=== PATIENT | male | born 1955 | race Caucasian/White ===

== ENCOUNTER → 2016-03-09 | Outpatient (CLI) | payer BC ==
[~2016-03-09] MED LIST: ASPI81TA3 PO; ATOR80TA75 PO; CLOP75TA27 PO; DIAZ10TA4 PO; ESCI10TA PO; GLIM2TAB PO; HYDR4TAB18 PO; LISI-523 PO; METF500T4 PO; OXYC30TA PO; ZOLP10TA PO
== END | disposition home or self-care (01) ==
LOC: CRE 14:53
PROVIDERS: ATTEND Nurse Practitioner Acute Care
DX: I25.10 Atherosclerotic heart disease of native coronary artery without angina pectoris (principal); I25.5 Ischemic cardiomyopathy; I25.2 Old myocardial infarction
CPT/HCPCS: 93797

== ENCOUNTER 2016-04-18 17:57 | Inpatient (IN) | payer BC ==
[~2016-04-18] VITALS: Ht 182.9 cm; Wt 90.6 kg
--- NOTE | 2016-04-18 19:39 | HP ---
DATE OF ADMISSION: 04/18/2016 REASON FOR ADMISSION: Chest pain and fever. HISTORY OF PRESENT ILLNESS: This 61-year-old man was seen by me today because of "not feeling well." The patient says that he has been feeling fatigued over the past week. Yesterday, while trying to fix the light switch, he had some chest heaviness with diaphoresis. The patient got into to bed and felt better. The patient then went for his cardiac rehabilitation today. He came to see me after the rehab and was feeling sweaty. He denied any chest pain today. The patient says that he had a fever to 103 about 8 days ago. He also had vomiting and diarrhea. He said he was confused. The patient said that he felt better after the fever subsided. He has had no further fevers since then. The patient says that about a month ago, he had some dental work done on the left upper premolar. He said that he was having some pain and mentioned this to his oncologist and was given a week of amoxicillin. He said that he felt better after taking the amoxicillin. The patient has not had any recent diarrhea, cough, headache, dysuria. PAST MEDICAL HISTORY: Remarkable for the followin. Coronary artery disease status post 3 coronary artery stents placed during the last 2 years. 2. Multiple myeloma in remission. He is currently taking Decadron once a week. 3. Type 2 diabetes mellitus. 4. Chronic back pain, on narcotic medications chronically. 5. Hyperlipidemia. 6. Rosacea. 7. Depression. 8. Hypertension. 9. Migraine headaches. CURRENT MEDICATIONS: Include the followin. OxyContin 20 mg twice a day. 2. Atorvastatin 80 mg a day. 3. Aspirin 81 mg a day. 4. Ambien 10 mg at bedtime for sleep. 5. Dilaudid 4 mg every 4 hours for back pain. 6. Metformin 500 mg twice a day. 7. Plavix 75 mg a day. 8. Glimepiride 2 mg once a day. 9. Lisinopril 2.5 mg once a day. 10. Lexapro 20 mg once a day. 11. Decadron he takes once a week. ALLERGIES: NO KNOWN DRUG ALLERGIES. SURGICAL HISTORY: Lumbar spine surgery x3, tonsillectomy, cervical spine surgery, colonoscopy 12/2012, coronary artery stents x3. FAMILY HISTORY: Both parents are . Father of unknown causes. Mother had diabetes. SOCIAL HISTORY: The patient does not smoke, does not drink alcohol. 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 REVIEW OF SYSTEMS: CONSTITUTIONAL: He has had some sweats, no weight loss. He has had fatigue. OPHTHALMOLOGIC: Unremarkable. EARS, NOSE, AND THROAT: Negative. CARDIORESPIRATORY: He has had some chest heaviness yesterday associated with diaphoresis. GASTROINTESTINAL: Episode of nausea, vomiting, diarrhea approximately 1 week ago with fever. UROLOGIC: Negative. PHYSICAL EXAMINATION: GENERAL: At this time, reveals well-developed man in no apparent distress. VITAL SIGNS: Temperature 98.1, blood pressure 104/80, heart rate 76. HEENT: Head normocephalic. EYES: Extraocular muscles intact. NOSE AND MOUTH: Normal. NECK: Supple. No neck vein distention. LUNGS: Clear to auscultation. HEART: Regular rhythm. No murmurs, gallops, or rubs. ABDOMEN: Soft, nontender. No masses or megaly. EXTREMITIES: 2+ pedal pulses. No clubbing, cyanosis, or edema. IMPRESSION: 1. The most immediate concern is to rule out acute coronary syndrome. The patient had an episode of chest pressure yesterday with associated diaphoresis. The patient has also been having a fever recently. 2. Type 2 diabetes mellitus. 3. Hypertension. 4. Multiple myeloma, in remission. 5. Headaches. 6. Hyperlipidemia. PLAN 1. The patient is being sent to the emergency room for further evaluation and treatment. 2. Rule out acute coronary syndrome. 3. Cardiology consult with Dr Keyona jiménez . 4. He did have a fever and therefore will need a fever workup including a chest x-ray, urinalysis, blood cultures x2, etc. 5. I will follow the patient medically. Dictated By: LINDSAY YI MD, ND/NATACHA Conf#: [id number] DID#: [id number] MTDD
[2016-04-18] MEDS ORDERED: OXYC20TA41 PO (19:52)
[2016-04-18] MEDS ORDERED: ESCI20TA38 PO (19:53)
[2016-04-18] MEDS ORDERED: DEXA4TAB PO (19:54)
[2016-04-18] MEDS ORDERED: LISI2.5T59 PO (19:55)
[2016-04-18] MEDS ORDERED: ACETAMINOPHEN 325 MG TAB PO PRN (20:00)
[2016-04-18] MEDS ORDERED: NACL 0.9% 3 ML SYG IV SCH (20:00)
[2016-04-18] MEDS ORDERED: NITROGLYCERIN (SL) 0.4 MG TAB SL PRN (20:00)
[2016-04-18] MEDS ORDERED: ONDANSETRON 4 MG INJ IV PRN (20:00)
[2016-04-18 20:04] LABS: ADD SCAN DIFF NO
[2016-04-18 20:08] LABS: BASOPHILS % 0.5 % (0.0-2.0); EOSINOPHILS # 0.1 10^3/ul (0.0-0.5); EOSINOPHILS % 0.7 % (0.0-7.0); HEMATOCRIT 42.3 % (42.0-52.0); LYMPHOCYTES # 1.7 10^3/ul (0.8-2.9); LYMPHOCYTES % 19.2 % (15.0-51.0); MEAN CORPUSCULAR HEMOGLOBIN 31.4 pg (29.0-33.0); MEAN CORPUSCULAR HGB CONC 33.1 g/dl (32.0-37.0); MEAN CORPUSCULAR VOLUME 94.8 fl (82.0-101.0); MEAN PLATELET VOLUME 10.5 fl (7.4-10.4); MONOCYTES % 11.2 % (0.0-11.0); NEUTROPHIL # 5.5 10^3/ul (1.6-7.5); NEUTROPHILS % 63.9 % (39.0-77.0); PLATELET COUNT 231 10^3/UL (140-415); RED BLOOD COUNT 4.46 10^6/ul (4.70-6.10); RED CELL DISTRIBUTION WIDTH 12.8 % (11.5-14.5); WHITE BLOOD COUNT 8.6 10^3/ul (4.8-10.8)
[2016-04-18 20:19] LABS: INR 0.91; PROTIME 12.3 Sec (12.2-14.2)
[2016-04-18 20:20] LABS: PARTIAL THROMBOPLASTIN TIME 24.3 Sec (25.0-35.0)
[2016-04-18 20:25] LABS: CHLORIDE 105 mmol/L (97-110); SODIUM 140 mmol/L (135-144)
[2016-04-18 20:28] LABS: ANION GAP 13 (8-16); BLOOD UREA NITROGEN 15 mg/dl (7-20); CALCIUM 8.5 mg/dl (8.4-10.2); CARBON DIOXIDE 26 mmol/L (21-31); CREATININE 0.77 mg/dl (0.61-1.24); GLUCOSE 111 mg/dl (70-220)
[2016-04-18 20:37] LABS: B-TYPE NATRIURETIC PEPTIDE 48 PG/ML (0-125)
[2016-04-18 20:41] LABS: TROPONIN-I < 0.012 ng/ml (0.00-0.12)
--- NOTE | 2016-04-18 20:44 | ERA ---
ER Documentation Chief Complaint Date/Time DATE: 04/18/16 TIME: 20:42 Chief Complaint CHEST PAIN FOR [address] JOHN FOR ADMIT. NO RECENT URI HPI This is a 61-year-old male presents to the emergency room for evaluation of chest pain that he has had for 1 weeks duration. This patient was sent in by his primary care physician Dr. john for admission. This patient did state that he had a fever 3 days ago. The patient denies any cough associated with this and came to the emergency room for evaluation and admission. Patient states his chest pain is an achy pain in the center of his chest with no radiation. Patient denies any aggravating or relieving factors for his pain. ROS All systems reviewed and are negative except as per history of present illness. Medications Home Meds Active Scripts Lisinopril* (Zestril*) 5 Mg Tab, 2.5 MG PO DAILY, #30 Prov:YURIY HERRING MD 10/25/14 Clopidogrel Bisulfate (Clopidogrel) 75 Mg Tab, 75 MG PO DAILY, #90 4 Refills Prov:YURIY HERRING MD 10/25/14 Aspirin (Aspirin) 81 Mg Chew, 81 MG PO DAILY, #30 12 Refills Prov:YURIY HERRING MD 10/25/14 Reported Medications Lisinopril* (Lisinopril*) 2.5 Mg Tablet, 2.5 MG PO DAILY, #30 TAB 04/18/16 Dexamethasone* (Dexamethasone*) 4 Mg Tablet, 6 MG PO DAILY, TAB 04/18/16 Escitalopram Oxalate* (Escitalopram Oxalate*) 20 Mg Tablet, 20 MG PO DAILY, #30 TAB 04/18/16 Oxycodone Hcl* (Oxycontin*) 20 Mg Tab.er.12h, 20 MG PO Q4H, TAB 04/18/16 Hydromorphone Hcl* (Dilaudid*) 4 Mg Tablet, 5 MG PO Q6H Y for PAIN, TAB 11/26/15 Zolpidem Tartrate* (Ambien*) 10 Mg Tablet, 10 MG PO QHS Y for INSOMNIA, TAB 11/26/15 Diazepam* (Diazepam*) 10 Mg Tablet, 10 MG PO, TAB 11/26/15 Glimepiride* (Glimepiride*) 2 Mg Tablet, 2 MG PO WITH BREAKFAST, TAB 11/26/15 Metformin* (Glucophage*) 500 Mg Tab, 500 MG PO BID, #30 TAB 07/01/15 Atorvastatin* (Atorvastatin*) 80 Mg Tablet, 80 MG PO HS, TAB 10/21/14 Discontinued Reported Medications Oxycodone Hcl* (IR) (Oxycodone Hcl*) 30 Mg Tablet, 20 MG PO Q4H Y for PAIN, TAB 11/26/15 Escitalopram Oxalate* (Lexapro*) 10 Mg Tablet, 10 MG PO DAILY, #30 TAB 07/01/15 Allergies Allergies: Coded Allergies: No Known Allergies (Verified Allergy, Unknown, 04/18/16) PMhx/Soc History of Surgery: Yes (SPINAL ARTHRODESIS) Anesthesia Reaction: No Hx Neurological Disorder: No Hx Respiratory Disorders: No Hx Cardiac Disorders: Yes (CORONARY ARTERY STENOSIS, HTN, HLP,CARDIOMYOPATHY) Hx Psychiatric Problems: No Hx Miscellaneous Medical Probl: Yes (MULTIPLE MYELOMA) Hx Alcohol Use: No Hx Substance Use: Yes (occassional THC in edible) Hx Tobacco Use: No Smoking Status: Never smoker Physical Exam Vitals Vital Signs Date Time Temp Pulse Resp B/P Pulse Ox O2 Delivery O2 Flow Rate FiO2 04/18/16 19:48 80 11 105/75 98 04/18/16 17:59 97.8 107 20 112/71 94 Physical Exam INITIAL VITAL SIGNS: Reviewed by me GENERAL: The patient is well developed and appropriate for usual state of health in no apparent distress HEENT: Pupils equal, round, and reactive to light. EOMI. There is no scleral icterus. NECK: C-spine is soft and supple, there is no meningismus. There is no cervical lymphadenopathy. LUNGS: Clear to auscultation bilaterally. There are no rales, wheezes or rhonchi. HEART: Regular rate and rhythm, no murmurs, clicks, rubs or gallops. ABDOMEN: Soft, non-tender, non-distended. There are bowel sounds in all four quadrants. No rebound or guarding. EXTREMITIES: There is no peripheral cyanosis or edema. No focal swelling or erythema. NEUROLOGICAL: The patient moves all four extremities with 5/5 strength. Cranial nerves II - XII are intact. Normal gait. Alert and oriented SKIN: There is no apparent rash or petechiae. HEME/LYMPHATIC: There is no evidence of excessive bruising or lymphedema. PSYCHIATRIC: The patient does not appear anxious or depressed. Result Diagram: 04/18/16194404/18/161944 Results 24 hrs Laboratory Tests Test 04/18/16 19:45 04/18/16 20:20 Activated Partial Thromboplast Time 24.3Sec Anion Gap 13 B-Type Natriuretic Peptide 48PG/ML Basophils # 0.010^3/ul Basophils % 0.5% Blood Urea Nitrogen 15mg/dl Calcium Level 8.5mg/dl Carbon Dioxide Level 26mmol/L Chloride Level 105mmol/L Creatinine 0.77mg/dl Eosinophils # 0.110^3/ul Eosinophils % 0.7% Glucose Level 111mg/dl Hematocrit 42.3% Hemoglobin 14.0g/dl INR International Normalized Ratio 0.91 Lymphocytes # 1.710^3/ul Lymphocytes % 19.2% Mean Corpuscular Hemoglobin 31.4pg Mean Corpuscular Hemoglobin Concent 33.1g/dl Mean Corpuscular Volume 94.8fl Mean Platelet Volume 10.5fl Monocytes # 1.010^3/ul Monocytes % 11.2% Neutrophils # 5.510^3/ul Neutrophils % 63.9% Nucleated Red Blood Cells # 0.010^3/ul Nucleated Red Blood Cells % 0.0/100WBC Platelet Count 05334^3/UL Potassium Level 4.0mmol/L Prothrombin Time 12.3Sec Prothrombin Time Ratio 1.0 Red Blood Count 4.4610^6/ul Red Cell Distribution Width 12.8% Sodium Level 140mmol/L Troponin I < 0.012ng/ml White Blood Count 8.610^3/ul Bedside Glucose 110mg/dL Current Medications Medications (Trade) Dose Ordered Sig/[place] Route PRN Reason Start Time Stop Time Status Last Admin Dose Admin IV Flush (NS 3 ml) 3 ml PER PROTOCOL IV 04/18/16 20:00 Ondansetron HCl (Zofran Inj) 4 mg Q6H PRN IV NAUSEA AND/OR VOMITING 04/18/16 20:00 Nitroglycerin (Nitroglycerin (Sl Tab) 0.4 Mg) 1 tab Q5M PRN SL CHEST PAIN 04/18/16 20:00 Acetaminophen (Tylenol Tab) 650 mg Q6H PRN PO PAIN LEVEL 1-3 OR FEVER 04/18/16 20:00 Procedures/MDM EKG: Rate/Rhythm: [Normal Sinus Rhythm] QRS, ST, T-waves: [No changes consistent w/ acute ischemia] Impression: [No evidence of ischemia or arrhythmia] Chest X-ray 1V Interpreted by me: Soft Tissue: No acute abnormalities Bones: No acute abnormalities Mediastinum/Cardiac Silhouette/Lungs: [No acute abnormalities] This 61-year-old male presents to the emergency room for evaluation of chest pain. The patient was sent in by his primary care physician for evaluation and admission. And when I evaluated this patient he was hemodynamically stable, not hypoxic. The patient had lab work drawn and an EKG was obtained which is nonischemic. First troponin is normal. Chest x-ray does not show any acute infiltrates or pneumothorax. This patient will be placed in for admission at this time under the care of Dr. Newton for chest pain. [facility] Departure Diagnosis: Primary Impression: Chest pain Condition: Stable YANNI GOODSON DO Apr 18, 2016 20:44
--- NOTE | 2016-04-18 20:46 | RADRPT ---
PROCEDURE: XR Chest AP portable CLINICAL INDICATION: Chest pain TECHNIQUE: An AP portable radiograph of the chest was submitted. COMPARISON: 07/01/2015 FINDINGS: Support Hardware: None Cardiovascular: The cardiovascular silhouette appears unremarkable. Lung Styles: Slight discoid atelectasis is again seen at the lung bases. Pleural Spaces: No pneumothorax or pleural effusion is identified. Osseous Structures: Mild degenerative endplate changes are seen through the thoracic spine. Soft Tissues: The soft tissues appear unremarkable. IMPRESSION: 1. Persistent mild discoid atelectasis seen at the lung bases. 2. Mild degenerative spine changes. Physician Avani Date Time Electronically viewed and signed by Kirk Connelly Physician on 04/18/2016 20:46 RH/
[2016-04-18] MEDS ORDERED: morphine 4 MG/ML VIAL IV STA (20:47)
[2016-04-18] MEDS ORDERED: GLUCOSE GEL 15 GRAM TUBE PO PRN ×2 (22:00)
[2016-04-18] MEDS ORDERED: GLUCAGON 1 MG INJ IM PRN (22:00)
[2016-04-18] MEDS ORDERED: DEXTROSE 50% 50 ML SYRINGE IV PRN ×2 (22:00)
[2016-04-18] MEDS ORDERED: ZOLPIDEM 5 MG TAB PO PRN (22:00)
[2016-04-18] MEDS ORDERED: GLUCOSE GEL 15 GRAM TUBE BUCCAL PRN (22:00)
[2016-04-18] MEDS ORDERED: oxyCODONE (CR) 20 MG TAB [oxyCONTIN] PO SCH (22:00)
[2016-04-18] MEDS ORDERED: HYDROmorphONE 4 MG TAB PO PRN (22:00)
[2016-04-18] MEDS ORDERED: DIAZEPAM 5 MG TAB PO PRN (22:00)
[2016-04-18 22:15] VITALS: Ht 182.9 cm; Wt 90.6 kg
[2016-04-18 22:17] VITALS: PULSE 72
[2016-04-18 22:46] VITALS: BP 125/73; RESP 18
[2016-04-18] MEDS: ATORVASTATIN 80 MG TAB PO SCH (23:43)
[2016-04-18] MEDS: metFORMIN 500 MG TAB PO SCH (23:43)
[2016-04-19] VITALS (12 sets, daily range): BP systolic 113–141; BP diastolic 69–89; PULSE 60–79; RESP 16–20
[2016-04-19 01:55] LABS: TROPONIN-I 0.023 ng/ml (0.00-0.12)
[2016-04-19] MEDS: ACCUCHECK AT 2AM (Patients on SS coverage) XX SCH (02:00)
[2016-04-19 02:38] LABS: CK-MB 0.35 ng/ml (0.0-2.4)
[2016-04-19] MEDS: HYDROmorphONE 2 MG TAB PO PRN ×2 (02:47→14:46)
[2016-04-19] MEDS: INSULIN ASPART [NOVOLOG] 3 ML PEN SC SCH ×4 (08:00→21:00)
--- NOTE | 2016-04-19 08:05 | PN ---
Date/Time of Note Date/Time of Note DATE: 04/19/16 TIME: 07:57 Assessment/Plan VTE Prophylaxis VTE Prophylaxis Intervention: ambulation, SCD's Lines/Catheters IV Catheter Type (from Nrs): [place] [employer] Central line still needed: No Urinary Cath still in place: No Assessment/Plan Chief Complaint/Hosp Course 1. chest pressure , r/o acute coronary syndrome .Troponins are negative and EKG last night normal . Cardiology consult called . will order EKG and echocardiogram . 2. fever , no obvious source of infection , afebrile . 3. DM 4. migraine headache . 5. multiple myeloma ,in remission Problems: Subjective 24 Hr Interval Summary Free Text/Dictation He is awake and alert . He has a headache . He had some chest pressure last night . Respiratory: no complaints Cardiovascular: chest pain Gastrointestinal: no complaints Genitourinary: no complaints Neurologic: headache Exam/Review of Systems Vital Signs Vitals Vital Signs Date Time Temp Pulse Resp B/P Pulse Ox O2 Delivery O2 Flow Rate FiO2 04/19/16 04:10 97.9 76 20 120/69 98 04/18/16 22:30 Nasal Cannula 2.0 Intake and Output 04/18/16 04/18/16 04/19/16 15:00 23:00 07:00 Intake Total 650 ml Balance 650 ml Exam Constitutional: alert, oriented, well developed Psych: nl mood/affect, no complaints Respiratory: clear to auscultation, normal air movement Cardiovascular: nl pulses, regular rate and rhythm Gastrointestinal: nl liver, spleen, non-tender, soft Musculoskeletal: nl extremities to inspection Results Result Diagram: 04/18/16194404/18/161944 Results 24 hrs Laboratory Tests Test 04/18/16 19:45 04/18/16 20:20 04/19/16 01:20 04/19/16 02:22 Activated Partial Thromboplast Time 24.3 L Anion Gap 13 B-Type Natriuretic Peptide 48 Basophils # 0.0 Basophils % 0.5 Blood Urea Nitrogen 15 Calcium Level 8.5 Carbon Dioxide Level 26 Chloride Level 105 Creatinine 0.77 Eosinophils # 0.1 Eosinophils % 0.7 Glucose Level 111 Hematocrit 42.3 Hemoglobin 14.0 INR International Normalized Ratio 0.91 Lymphocytes # 1.7 Lymphocytes % 19.2 Mean Corpuscular Hemoglobin 31.4 Mean Corpuscular Hemoglobin Concent 33.1 Mean Corpuscular Volume 94.8 Mean Platelet Volume 10.5 H Monocytes # 1.0 H Monocytes % 11.2 H Neutrophils # 5.5 Neutrophils % 63.9 Nucleated Red Blood Cells # 0.0 Nucleated Red Blood Cells % 0.0 Platelet Count 231 Potassium Level 4.0 Prothrombin Time 12.3 Prothrombin Time Ratio 1.0 Red Blood Count 4.46 L Red Cell Distribution Width 12.8 Sodium Level 140 Troponin I < 0.012 0.023 White Blood Count 8.6 # Bedside Glucose 110 147 Creatine Kinase 24 Creatine Kinase Index 1.5 Creatinine Kinase MB (Mass) 0.35 Test 04/19/16 07:49 Bedside Glucose 136 Medications Medications Current Medications Ondansetron HCl (Zofran Inj) 4 mg Q6H PRN IV NAUSEA AND/OR VOMITING; Start at 20:00 Nitroglycerin (Nitroglycerin (Sl Tab) 0.4 Mg) 1 tab Q5M PRN SL CHEST PAIN; Start 04/18/16 at 20:00 Acetaminophen (Tylenol Tab) 650 mg Q6H PRN PO PAIN LEVEL 1-3 OR FEVER; Start at 20:00 Aspirin (Aspirin) 81 mg DAILY PO ; Start 04/19/16 at 09:00 Atorvastatin Calcium (Lipitor) 80 mg HS PO Last administered on 04/18/16 23:43 ; Admin Dose 80 MG; Start 04/18/16 at 23:30 Clopidogrel Bisulfate (plaVIX) 75 mg DAILY PO ; Start 04/19/16 at 09:00 Diazepam (Valium) 10 mg HS PRN PO sleep Last administered on 04/18/16 23:45; Admin Dose 10 MG; Start 04/18/16 at 22:00 Escitalopram Oxalate (Lexapro) 20 mg DAILY PO ; Start 04/19/16 at 09:00 Lisinopril (Zestril) 2.5 mg DAILY PO ; Start 04/19/16 at 09:00 Zolpidem Tartrate (Ambien) 10 mg QHS PRN PO INSOMNIA; Start 04/18/16 at 22:00 Oxycodone HCl (Oxycontin) 20 mg BID PO ; Start 04/19/16 at 09:00 Miscellaneous Information 1 ea NOTE XX ; Start 04/18/16 at 22:00 Glucose (Glutose) 15 gm Q15M PRN PO DECREASED GLUCOSE; Start 04/18/16 at 22:00 Glucose (Glutose) 22.5 gm Q15M PRN PO DECREASED GLUCOSE; Start 04/18/16 at 22: 00 Dextrose (D50w Syringe) 25 ml Q15M PRN IV DECREASED GLUCOSE; Start 04/18/16 at 22:00 Dextrose (D50w Syringe) 50 ml Q15M PRN IV DECREASED GLUCOSE; Start 04/18/16 at 22:00 Glucagon (Glucagen) 1 mg Q15M PRN IM DECREASED GLUCOSE; Start 04/18/16 at 22:00 Glucose (Glutose) 15 gm Q15M PRN BUCCAL DECREASED GLUCOSE; Start 04/18/16 at 22 :00 Diagnostic Test (Pha) (Accucheck) 1 ea 02 XX ; Start 04/19/16 at 02:00 Hydromorphone HCl (Dilaudid) 5 mg Q6H PRN PO PAIN Last administered on t 02:47; Admin Dose 5 MG; Start 04/19/16 at 03:00 LINDSAY YI MD Apr 19, 2016 08:05
[2016-04-19 08:30] LABS: CK-MB 0.32 ng/ml (0.0-2.4); TROPONIN-I 0.021 ng/ml (0.00-0.12)
[2016-04-19] MEDS ORDERED: LISINOPRIL 5 MG TAB PO SCH ×2 (09:00)
[2016-04-19] MEDS: ASPIRIN 81 MG TAB PO SCH (09:16)
[2016-04-19] MEDS: metFORMIN 500 MG TAB PO SCH ×2 (09:17→18:44)
[2016-04-19] MEDS: ESCITALOPRAM 10 MG TAB PO SCH (09:17)
[2016-04-19] MEDS: CLOPIDOGREL 75 MG TAB PO SCH (09:17)
[2016-04-19] MEDS: GLIMEPIRIDE 2 MG TAB PO SCH (09:17)
[2016-04-19] MEDS: oxyCODONE (CR) 20 MG TAB [oxyCONTIN] PO SCH ×2 (09:18→21:06)
--- NOTE | 2016-04-19 10:50 | CONS ---
Date/Time of Note Date/Time of Note DATE: 04/19/16 TIME: 10:41 Assessment/Plan Assessment/Plan Chief Complaint/Hosp Course Impression: Chest pressure- symptoms are different than previous anginal L shoulder pain, but are concerning for unstable angina given associated chest pressure/sob/ fatigue/diaphoresis. pt r/o for acs and echo negative for wma. will need to further evaluate with stress echo vs. LHC. d/w pt/family, prefer stress echo prior to invasive evaluation. - cont asa/plavix/statin - pt unable to tolerate imdur/bb - treadmill stress echo when possible - DM2- per primary team HTN - controlled - cont lisinopril - low salt diet HLD- on statin ICM- low ef on 2014 echo, resolved now normal lv systolic fxn Problems: Consultation Date/Type/Reason Admit Date/Time Apr 18, 2016 at 19:49 Date of Consultation: Apr 19, 2016 Type of Consultation: Cardiology Reason for Consultation Chest pressure, fatigue Referring Provider: LINDSAY YI MD Hx of Present Illness Mr. Arrieta is a 61 y.o. man with h/o of CAD s/p PCI to LAD, rPDA, rPL branches, ICM with normalization of lvef, myeloma, htn, hld and diabetes 2/2 steroid therapy. Patient admitted to [facility] by PCP Dr. Yi for one week of progressive fatigue, chest heaviness and diaphoresis. Pt apparently had fevers with n/v 8 days ago on the weekend as well. Pt states walking shor distances have cause him heaviness in mid chest and diaphoresis. However, this is not with all activities as he has been to rehab without chest pressure. has been compliant with medications, no bleeding. no pnd, orthopnea, edema. no palp, dizziness, fainting. EKG on admission reviewed, nsr, no ischemic changes. pt with serial neg trop x 3. Constitutional: febrile Eyes: no complaints ENT: no complaints Respiratory: shortness of breath Cardiovascular: chest pain Gastrointestinal: nausea, vomiting Genitourinary: no complaints Musculoskeletal: no complaints Skin: no complaints Neurologic: headache Psychological: nl mood/affect, no complaints Past Medical History 1. Coronary artery disease status post 3 coronary artery stents placed during the last 2 years. 2. Multiple myeloma with h/o of lytic lesions, in remission. He is currently taking Decadron once a week. 3. Type 2 diabetes mellitus. 4. Chronic back pain, on narcotic medications chronically. 5. Hyperlipidemia. 6. Rosacea. 7. Depression. 8. Hypertension. 9. Migraine headaches. Past Surgical History Lumbar spine surgery x3, tonsillectomy, cervical spine surgery, colonoscopy 2012, coronary artery stents x3. Past Surgical Hx: no surgical history Family History Significant Family History: heart disease (no heart disease) Social History Alcohol Use: none Smoking Status: Never smoker Drug Use: none Exam/Review of Systems Vital Signs Vitals Vital Signs Date Time Temp Pulse Resp B/P Pulse Ox O2 Delivery O2 Flow Rate FiO2 04/19/16 09:32 60 04/19/16 08:21 97.9 18 119/79 99 04/18/16 22:30 Nasal Cannula 2.0 Intake and Output 04/18/16 04/18/16 04/19/16 15:00 23:00 07:00 Intake Total 650 ml Balance 650 ml Exam Constitutional: alert, oriented, well developed Psych: nl mood/affect, no complaints Head: atraumatic, normocephalic Eyes: EOMI, nl conjunctiva, nl lids ENMT: nl external ears & nose Neck: non-tender, supple, No jvd Respiratory: clear to auscultation, normal air movement, No crackles/rales Cardiovascular: bruits, nl pulses, regular rate and rhythm, No S3, No S4, No systolic murmur Gastrointestinal: non-tender, soft Musculoskeletal: nl extremities to inspection Extremities: normal pulses 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, nl mental status, nl speech, nl strength Skin: nl turgor Results Result Diagram: 04/18/16194404/18/161944 Results 24 hrs Laboratory Tests Test 04/18/16 19:45 04/18/16 20:20 04/19/16 01:20 04/19/16 02:22 Activated Partial Thromboplast Time 24.3 L Anion Gap 13 B-Type Natriuretic Peptide 48 Basophils # 0.0 Basophils % 0.5 Blood Urea Nitrogen 15 Calcium Level 8.5 Carbon Dioxide Level 26 Chloride Level 105 Creatinine 0.77 Eosinophils # 0.1 Eosinophils % 0.7 Glucose Level 111 Hematocrit 42.3 Hemoglobin 14.0 INR International Normalized Ratio 0.91 Lymphocytes # 1.7 Lymphocytes % 19.2 Mean Corpuscular Hemoglobin 31.4 Mean Corpuscular Hemoglobin Concent 33.1 Mean Corpuscular Volume 94.8 Mean Platelet Volume 10.5 H Monocytes # 1.0 H Monocytes % 11.2 H Neutrophils # 5.5 Neutrophils % 63.9 Nucleated Red Blood Cells # 0.0 Nucleated Red Blood Cells % 0.0 Platelet Count 231 Potassium Level 4.0 Prothrombin Time 12.3 Prothrombin Time Ratio 1.0 Red Blood Count 4.46 L Red Cell Distribution Width 12.8 Sodium Level 140 Troponin I < 0.012 0.023 White Blood Count 8.6 # Bedside Glucose 110 147 Creatine Kinase 24 Creatine Kinase Index 1.5 Creatinine Kinase MB (Mass) 0.35 Test 04/19/16 07:20 04/19/16 07:49 Creatine Kinase 22 L Creatine Kinase Index 1.5 Creatinine Kinase MB (Mass) 0.32 Troponin I 0.021 Bedside Glucose 136 Medications Medications Current Medications Ondansetron HCl (Zofran Inj) 4 mg Q6H PRN IV NAUSEA AND/OR VOMITING; Start at 20:00 Nitroglycerin (Nitroglycerin (Sl Tab) 0.4 Mg) 1 tab Q5M PRN SL CHEST PAIN; Start 04/18/16 at 20:00 Acetaminophen (Tylenol Tab) 650 mg Q6H PRN PO PAIN LEVEL 1-3 OR FEVER; Start at 20:00 Aspirin (Aspirin) 81 mg DAILY PO Last administered on 04/19/16 09:16; Admin Dose 81 MG; Start 04/19/16 at 09:00 Atorvastatin Calcium (Lipitor) 80 mg HS PO Last administered on 04/18/16 23:43 ; Admin Dose 80 MG; Start 04/18/16 at 23:30 Clopidogrel Bisulfate (plaVIX) 75 mg DAILY PO Last administered on 04/19/16 09 :17; Admin Dose 75 MG; Start 04/19/16 at 09:00 Diazepam (Valium) 10 mg HS PRN PO sleep Last administered on 04/18/16 23:45; Admin Dose 10 MG; Start 04/18/16 at 22:00 Escitalopram Oxalate (Lexapro) 20 mg DAILY PO Last administered on 04/19/16 09 :17; Admin Dose 20 MG; Start 04/19/16 at 09:00 Lisinopril (Zestril) 2.5 mg DAILY PO Last administered on 04/19/16 09:20; Admin Dose 2.5 MG; Start 04/19/16 at 09:00 Zolpidem Tartrate (Ambien) 10 mg QHS PRN PO INSOMNIA; Start 04/18/16 at 22:00 Oxycodone HCl (Oxycontin) 20 mg BID PO Last administered on 04/19/16 09:18; Admin Dose 20 MG; Start 04/19/16 at 09:00 Miscellaneous Information 1 ea NOTE XX ; Start 04/18/16 at 22:00 Glucose (Glutose) 15 gm Q15M PRN PO DECREASED GLUCOSE; Start 04/18/16 at 22:00 Glucose (Glutose) 22.5 gm Q15M PRN PO DECREASED GLUCOSE; Start 04/18/16 at 22: 00 Dextrose (D50w Syringe) 25 ml Q15M PRN IV DECREASED GLUCOSE; Start 04/18/16 at 22:00 Dextrose (D50w Syringe) 50 ml Q15M PRN IV DECREASED GLUCOSE; Start 04/18/16 at 22:00 Glucagon (Glucagen) 1 mg Q15M PRN IM DECREASED GLUCOSE; Start 04/18/16 at 22:00 Glucose (Glutose) 15 gm Q15M PRN BUCCAL DECREASED GLUCOSE; Start 04/18/16 at 22 :00 Diagnostic Test (Pha) (Accucheck) 1 ea 02 XX ; Start 04/19/16 at 02:00 Hydromorphone HCl (Dilaudid) 5 mg Q6H PRN PO PAIN Last administered on 02:47; Admin Dose 5 MG; Start 04/19/16 at 03:00 Procedures Procedures cxr images reviewed atelectasis. no edema NAYELI CURIEL Apr 19, 2016 10:50
--- NOTE | 2016-04-19 15:34 | RADRPT ---
Echocardiogram Report Patient Name: FELICITY DE OLIVEIRA Gender: Male Date: 1955 Study Date: 19-Apr-2016 Medical Administrative Specialist: DOT [facility] Location: 5552 Ref. Physician: LINDSAY YI Quality: Good Procedures: Transthoracic echocardiogram with complete 2D, M-Mode, and doppler examination. Indications: Chest Pain. 2D/M Mode Doppler Measurement Value Normal Ranges Measurement Value Normal Ranges LVIDd 2D 5.1 3.5 - 5.6 cm AV Peak Corona 1.3 m/sec LVIDs 2D 3.6 2.1 - 4.1 cm AV Peak PG 7.3 mmHg LVPWd 2D 1.1 0.6 - 1.1 cm LVOT Peak [place] 1.0 m/sec IVSd 2D 1.2 0.6 - 1.1 cm LVOT Peak PG 3.7 mmHg EDV 2D 123.9 cm3 MV E Peak [place] 0.8 m/sec ESV 2D 47.7 cm3 MV A Peak [place] 0.9 m/sec MV E/A 0.9 MV Decel Time 204 msec MV Decel Simpson 4 MV E/A 0.9 Findings Left Ventricle: Normal left ventricular systolic function. Normal left ventricular cavity size. Normal left ventricular wall thickness. Ejection fraction is visually estimated at 65 %. Tissue Doppler/Mitral Doppler indices are consistent with impaired relaxation (Stage I diastolic dysfunction). Right Ventricle: Normal right ventricular size. Normal right ventricular systolic function. Left Atrium: There is mild enlargement of left atrium. LA Dimension4.20 cm. Right Atrium: The right atrium is normal in size. Mitral Valve: Mild mitral leaflet calcification. Trace mitral regurgitation. Aortic Valve: No hemodynamically significant aortic stenosis by doppler. Trileaflet aortic valve. Trace aortic valve regurgitation. Tricuspid Valve: Tricuspid valve not well visualized. Unable to obtain RVSP due to minimal presence of tricuspid regurgitation. There is trace tricuspid regurgitation. Pulmonic Valve: There is trace pulmonic regurgitation. Pericardium: Normal pericardium with no significant pericardial effusion. Aorta: Normal aortic root. IVC: Normal size and normal respiratory collapse consistent with normal right atrial pressure. Conclusions Normal left ventricular systolic function. Normal left ventricular cavity size. Normal left ventricular wall thickness. Ejection fraction is visually estimated at 65 %. Tissue Doppler/Mitral Doppler indices are consistent with impaired relaxation (Stage I diastolic dysfunction). Normal right ventricular size. Normal right ventricular systolic function. There is mild enlargement of left atrium. LA Dimension4.20 cm. Tricuspid valve not well visualized. Unable to obtain RVSP due to minimal presence of tricuspid regurgitation. There is trace tricuspid regurgitation. Normal size and normal respiratory collapse consistent with normal right atrial pressure. No Vegetation, masses, or thrombi seen. Electronically Signed By: Enrique Dennis 19-Apr-2016 15:33:38 -0700 Patient Name: FELICITY DE OLIVEIRA Study Date: 19-Apr-2016 [id number]
[2016-04-19 16:37] LABS: ADD UMIC NO; URINE BILIRUBIN (Dip) NEGATIVE (NEGATIVE); URINE BLOOD (Dip) NEGATIVE (NEGATIVE); URINE COLOR LT. YELLOW (YELLOW); URINE GLUCOSE (Dip) NEGATIVE (NEGATIVE); URINE KETONES (Dip) NEGATIVE (NEGATIVE); URINE LEUKOCYTE ESTERASE (Dip) NEGATIVE (NEGATIVE); URINE NITRITE (Dip) NEGATIVE (NEGATIVE); URINE TOTAL PROTEIN (Dip) NEGATIVE (NEGATIVE); URINE UROBILINOGEN (Dip) 0.2 E.U./dL (0.1-1.0)
[2016-04-19] MEDS: ATORVASTATIN 80 MG TAB PO SCH (21:06)
[2016-04-20] VITALS (10 sets, daily range): BP systolic 120–144; BP diastolic 67–94; PULSE 55–83; RESP 18–20
[2016-04-20] MEDS: ACCUCHECK AT 2AM (Patients on SS coverage) XX SCH (02:00)
[2016-04-20 06:46] LABS: ADD SCAN DIFF NO
[2016-04-20 06:48] LABS: BASOPHILS % 0.4 % (0.0-2.0); EOSINOPHILS # 0.1 10^3/ul (0.0-0.5); EOSINOPHILS % 1.2 % (0.0-7.0); HEMATOCRIT 40.6 % (42.0-52.0); HEMOGLOBIN 12.9 g/dl (14.0-18.0); LYMPHOCYTES # 1.4 10^3/ul (0.8-2.9); LYMPHOCYTES % 19.6 % (15.0-51.0); MEAN CORPUSCULAR HEMOGLOBIN 30.7 pg (29.0-33.0); MEAN CORPUSCULAR HGB CONC 31.8 g/dl (32.0-37.0); MEAN CORPUSCULAR VOLUME 96.7 fl (82.0-101.0); MEAN PLATELET VOLUME 10.8 fl (7.4-10.4); MONOCYTE # 1.2 10^3/ul (0.3-0.9); MONOCYTES % 16.3 % (0.0-11.0); NEUTROPHIL # 4.4 10^3/ul (1.6-7.5); NEUTROPHILS % 60.6 % (39.0-77.0); PLATELET COUNT 193 10^3/UL (140-415); RED CELL DISTRIBUTION WIDTH 12.9 % (11.5-14.5); WHITE BLOOD COUNT 7.3 10^3/ul (4.8-10.8)
[2016-04-20 07:29] LABS: ALBUMIN 3.2 g/dl (3.3-4.9); POTASSIUM 5.2 mmol/L (3.5-5.1)
[2016-04-20 07:31] LABS: CREATININE 0.75 mg/dl (0.61-1.24)
[2016-04-20 07:32] LABS: ALBUMIN/GLOBULIN RATIO 1.45; BILIRUBIN,INDIRECT 0.3 mg/dl (0-1.1); BILIRUBIN,TOTAL 0.3 mg/dl (0.2-1.3); TOTAL PROTEIN 5.4 g/dl (6.1-8.1)
[2016-04-20 07:33] LABS: CALCIUM 8.4 mg/dl (8.4-10.2)
--- NOTE | 2016-04-20 07:54 | CONS ---
Date/Time of Note Date/Time of Note DATE: 04/20/16 TIME: 07:48 Assessment/Plan Assessment/Plan Chief Complaint/Hosp Course 1. chest pressure , r/o acute coronary syndrome .Troponins are negative and EKG last night normal . Cardiology is seen patient . He is in the process of having a cardiac stress test done this morning. 2. fever , no obvious source of infection , afebrile . 3. DM 4. migraine headache . 5. multiple myeloma ,in remission Problems: Consultation Date/Type/Reason Admit Date/Time Apr 18, 2016 at 19:49 Initial Consult Date 04/19/16 Type of Consultation: Cardiology Referring Provider: LINDSAY YI MD 24 HR Interval Summary Free Text/Dictation He is going for a cardiac stress test now. He denies any chest pain. He continues to have a headache. Exam/Review of Systems Vital Signs Vitals Vital Signs Date Time Temp Pulse Resp B/P Pulse Ox O2 Delivery O2 Flow Rate FiO2 04/20/16 04:53 98.0 64 20 140/94 98 04/19/16 20:00 Room Air 04/19/16 20:00 2.0 Intake and Output 04/19/16 04/19/16 04/20/16 15:00 23:00 07:00 Intake Total 1100 ml 400 ml Balance 1100 ml 400 ml Exam Constitutional: alert, oriented, well developed Psych: nl mood/affect, no complaints Respiratory: clear to auscultation, normal air movement Cardiovascular: regular rate and rhythm Musculoskeletal: nl extremities to inspection Results Result Diagram: 04/20/16 0605 04/20/16 0605 Results 24 hrs Laboratory Tests Test 04/19/16 07:49 04/19/16 11:00 04/19/16 12:09 04/19/16 17:20 Bedside Glucose 136 133 106 Urine Bilirubin NEGATIVE Urine Clarity CLEAR Urine Color LT. YELLOW Urine Glucose NEGATIVE Urine Hemoglobin NEGATIVE Urine Ketones NEGATIVE Urine Leukocyte Esterase NEGATIVE Urine Nitrite NEGATIVE Urine Specific [place] 1.015 Urine Total Protein NEGATIVE Urine Urobilinogen 0.2 E.U./dL Urine pH 6.0 Test 04/19/16 21:05 04/20/16 06:05 Bedside Glucose 104 Alanine Aminotransferase (ALT/SGPT) 39 Albumin 3.2 L Albumin/Globulin Ratio 1.45 Alkaline Phosphatase 46 Anion Gap 10 Aspartate Amino Transf (AST/SGOT) 23 Basophils # 0.0 Basophils % 0.4 Blood Urea Nitrogen 10 Calcium Level 8.4 Carbon Dioxide Level 32 H Chloride Level 105 Creatinine 0.75 Direct Bilirubin 0.00 Eosinophils # 0.1 Eosinophils % 1.2 Globulin 2.20 Glucose Level 100 Hematocrit 40.6 L Hemoglobin 12.9 L Hemoglobin A1c 7.6 H Indirect Bilirubin 0.3 Lymphocytes # 1.4 Lymphocytes % 19.6 Mean Corpuscular Hemoglobin 30.7 Mean Corpuscular Hemoglobin Concent 31.8 L Mean Corpuscular Volume 96.7 Mean Platelet Volume 10.8 H Monocytes # 1.2 H Monocytes % 16.3 H Neutrophils # 4.4 Neutrophils % 60.6 Nucleated Red Blood Cells # 0.0 Nucleated Red Blood Cells % 0.0 Platelet Count 193 Potassium Level 5.2 H Red Blood Count 4.20 L Red Cell Distribution Width 12.9 Sodium Level 142 Total Bilirubin 0.3 Total Protein 5.4 L White Blood Count 7.3 Medications Medications Current Medications Ondansetron HCl (Zofran Inj) 4 mg Q6H PRN IV NAUSEA AND/OR VOMITING; Start at 20:00 Nitroglycerin (Nitroglycerin (Sl Tab) 0.4 Mg) 1 tab Q5M PRN SL CHEST PAIN; Start 04/18/16 at 20:00 Acetaminophen (Tylenol Tab) 650 mg Q6H PRN PO PAIN LEVEL 1-3 OR FEVER; Start at 20:00 Aspirin (Aspirin) 81 mg DAILY PO Last administered on 04/19/16 09:16; Admin Dose 81 MG; Start 04/19/16 at 09:00 Atorvastatin Calcium (Lipitor) 80 mg HS PO Last administered on 04/19/16 21:06 ; Admin Dose 80 MG; Start 04/18/16 at 23:30 Clopidogrel Bisulfate (plaVIX) 75 mg DAILY PO Last administered on 04/19/16 09 :17; Admin Dose 75 MG; Start 04/19/16 at 09:00 Diazepam (Valium) 10 mg HS PRN PO sleep Last administered on 04/18/16 23:45; Admin Dose 10 MG; Start 04/18/16 at 22:00 Escitalopram Oxalate (Lexapro) 20 mg DAILY PO Last administered on 04/19/16 09 :17; Admin Dose 20 MG; Start 04/19/16 at 09:00 Lisinopril (Zestril) 2.5 mg DAILY PO Last administered on 04/19/16 09:20; Admin Dose 2.5 MG; Start 04/19/16 at 09:00 Zolpidem Tartrate (Ambien) 10 mg QHS PRN PO INSOMNIA; Start 04/18/16 at 22:00 Oxycodone HCl (Oxycontin) 20 mg BID PO Last administered on 04/19/16 21:06; Admin Dose 20 MG; Start 04/19/16 at 09:00 Miscellaneous Information 1 ea NOTE XX ; Start 04/18/16 at 22:00 Glucose (Glutose) 15 gm Q15M PRN PO DECREASED GLUCOSE; Start 04/18/16 at 22:00 Glucose (Glutose) 22.5 gm Q15M PRN PO DECREASED GLUCOSE; Start 04/18/16 at 22: 00 Dextrose (D50w Syringe) 25 ml Q15M PRN IV DECREASED GLUCOSE; Start 04/18/16 at 22:00 Dextrose (D50w Syringe) 50 ml Q15M PRN IV DECREASED GLUCOSE; Start 04/18/16 at 22:00 Glucagon (Glucagen) 1 mg Q15M PRN IM DECREASED GLUCOSE; Start 04/18/16 at 22:00 Glucose (Glutose) 15 gm Q15M PRN BUCCAL DECREASED GLUCOSE; Start 04/18/16 at 22 :00 Diagnostic Test (Pha) (Accucheck) 1 ea 02 XX ; Start 04/19/16 at 02:00 Hydromorphone HCl (Dilaudid) 5 mg Q6H PRN PO PAIN Last administered on 14:46; Admin Dose 5 MG; Start 04/19/16 at 03:00 LINDSAY YI MD Apr 20, 2016 07:54
[2016-04-20] MEDS: INSULIN ASPART [NOVOLOG] 3 ML PEN SC SCH ×2 (08:00→12:00)
[2016-04-20] MEDS: metFORMIN 500 MG TAB PO SCH (08:00)
[2016-04-20] MEDS: HYDROmorphONE 2 MG TAB PO PRN ×2 (08:13→18:09)
--- NOTE | 2016-04-20 08:51 | CONS ---
Date/Time of Note Date/Time of Note DATE: 04/20/16 TIME: 08:49 Assessment/Plan Assessment/Plan Chief Complaint/Hosp Course Impression: Chest pressure- different than previous anginal symptoms. pt has r/o for ACS. has normal lv fxn on echo without ischemia or cp after 6 mins of stress. does have htn response to stress. - cont asa/plavix/statin - pt unable to tolerate imdur/bb previously due to headache/dizziness - add ranexa 500mg po bid - ok to defer on invasive evaluation at this time, re-evaluate as outpt. DM2- per primary team HTN - htn during stress test - controlled - cont lisinopril, increase to 5mg daily and cont to titrate as outpt - low salt diet HLD- on statin ICM- low ef on 2014 echo, resolved now normal lv systolic fxn Problems: Consultation Date/Type/Reason Admit Date/Time Apr 18, 2016 at 19:49 Initial Consult Date 04/19/16 Type of Consultation: Cardiology Referring Provider: LINDSAY YI MD 24 HR Interval Summary Free Text/Dictation no acute events. pt states has headache this am, waiting for pain medication. denies any cp/sob/sweats. pt with stress echo this am which showed no ischemia , pt able to exercise for 6 mins. no chest pain, did have sob. also with hypertensive response to stress. Detailed Summary ENT: no complaints Respiratory: no complaints Cardiovascular: no complaints Gastrointestinal: no complaints Exam/Review of Systems Vital Signs Vitals Vital Signs Date Time Temp Pulse Resp B/P Pulse Ox O2 Delivery O2 Flow Rate FiO2 04/20/16 08:20 64 04/20/16 04:53 98.0 20 140/94 98 04/19/16 20:00 Room Air 04/19/16 20:00 2.0 Intake and Output 04/19/16 04/19/16 04/20/16 15:00 23:00 07:00 Intake Total 1100 ml 400 ml Balance 1100 ml 400 ml Exam Constitutional: alert, oriented, well developed Psych: nl mood/affect, no complaints Head: atraumatic, normocephalic Eyes: EOMI, nl conjunctiva, nl lids ENMT: nl external ears & nose Neck: non-tender, supple, No jvd Respiratory: clear to auscultation, normal air movement, No crackles/rales Cardiovascular: bruits, nl pulses, regular rate and rhythm, No S3, No S4, No systolic murmur Gastrointestinal: non-tender, soft Musculoskeletal: nl extremities to inspection Extremities: normal pulses Neurological: RELATIONSHIP EXECUTIVE II-XII intact, nl mental status, nl speech, nl strength Skin: nl turgor Results Result Diagram: 04/20/16 0605 04/20/16 0605 Results 24 hrs Laboratory Tests Test 04/19/16 11:00 04/19/16 12:09 04/19/16 17:20 04/19/16 21:05 Urine Bilirubin NEGATIVE Urine Clarity CLEAR Urine Color LT. YELLOW Urine Glucose NEGATIVE Urine Hemoglobin NEGATIVE Urine Ketones NEGATIVE Urine Leukocyte Esterase NEGATIVE Urine Nitrite NEGATIVE Urine Specific [place] 1.015 Urine Total Protein NEGATIVE Urine Urobilinogen 0.2 E.U./dL Urine pH 6.0 Bedside Glucose 133 106 104 Test 04/20/16 06:05 Alanine Aminotransferase (ALT/SGPT) 39 Albumin 3.2 L Albumin/Globulin Ratio 1.45 Alkaline Phosphatase 46 Anion Gap 10 Aspartate Amino Transf (AST/SGOT) 23 Basophils # 0.0 Basophils % 0.4 Blood Urea Nitrogen 10 Calcium Level 8.4 Carbon Dioxide Level 32 H Chloride Level 105 Creatinine 0.75 Direct Bilirubin 0.00 Eosinophils # 0.1 Eosinophils % 1.2 Globulin 2.20 Glucose Level 100 Hematocrit 40.6 L Hemoglobin 12.9 L Hemoglobin A1c 7.6 H Indirect Bilirubin 0.3 Lymphocytes # 1.4 Lymphocytes % 19.6 Mean Corpuscular Hemoglobin 30.7 Mean Corpuscular Hemoglobin Concent 31.8 L Mean Corpuscular Volume 96.7 Mean Platelet Volume 10.8 H Monocytes # 1.2 H Monocytes % 16.3 H Neutrophils # 4.4 Neutrophils % 60.6 Nucleated Red Blood Cells # 0.0 Nucleated Red Blood Cells % 0.0 Platelet Count 193 Potassium Level 5.2 H Red Blood Count 4.20 L Red Cell Distribution Width 12.9 Sodium Level 142 Total Bilirubin 0.3 Total Protein 5.4 L White Blood Count 7.3 Medications Medications Current Medications Ondansetron HCl (Zofran Inj) 4 mg Q6H PRN IV NAUSEA AND/OR VOMITING; Start at 20:00 Nitroglycerin (Nitroglycerin (Sl Tab) 0.4 Mg) 1 tab Q5M PRN SL CHEST PAIN; Start 04/18/16 at 20:00 Acetaminophen (Tylenol Tab) 650 mg Q6H PRN PO PAIN LEVEL 1-3 OR FEVER; Start at 20:00 Aspirin (Aspirin) 81 mg DAILY PO Last administered on 04/19/16 09:16; Admin Dose 81 MG; Start 04/19/16 at 09:00 Atorvastatin Calcium (Lipitor) 80 mg HS PO Last administered on 04/19/16 21:06 ; Admin Dose 80 MG; Start 04/18/16 at 23:30 Clopidogrel Bisulfate (plaVIX) 75 mg DAILY PO Last administered on 04/19/16 09 :17; Admin Dose 75 MG; Start 04/19/16 at 09:00 Diazepam (Valium) 10 mg HS PRN PO sleep Last administered on 04/18/16 23:45; Admin Dose 10 MG; Start 04/18/16 at 22:00 Escitalopram Oxalate (Lexapro) 20 mg DAILY PO Last administered on 04/19/16 09 :17; Admin Dose 20 MG; Start 04/19/16 at 09:00 Lisinopril (Zestril) 2.5 mg DAILY PO Last administered on 04/19/16 09:20; Admin Dose 2.5 MG; Start 04/19/16 at 09:00 Zolpidem Tartrate (Ambien) 10 mg QHS PRN PO INSOMNIA; Start 04/18/16 at 22:00 Oxycodone HCl (Oxycontin) 20 mg BID PO Last administered on 04/19/16 21:06; Admin Dose 20 MG; Start 04/19/16 at 09:00 Miscellaneous Information 1 ea NOTE XX ; Start 04/18/16 at 22:00 Glucose (Glutose) 15 gm Q15M PRN PO DECREASED GLUCOSE; Start 04/18/16 at 22:00 Glucose (Glutose) 22.5 gm Q15M PRN PO DECREASED GLUCOSE; Start 04/18/16 at 22: 00 Dextrose (D50w Syringe) 25 ml Q15M PRN IV DECREASED GLUCOSE; Start 04/18/16 at 22:00 Dextrose (D50w Syringe) 50 ml Q15M PRN IV DECREASED GLUCOSE; Start 04/18/16 at 22:00 Glucagon (Glucagen) 1 mg Q15M PRN IM DECREASED GLUCOSE; Start 04/18/16 at 22:00 Glucose (Glutose) 15 gm Q15M PRN BUCCAL DECREASED GLUCOSE; Start 04/18/16 at 22 :00 Diagnostic Test (Pha) (Accucheck) 1 ea 02 XX ; Start 04/19/16 at 02:00 Hydromorphone HCl (Dilaudid) 5 mg Q6H PRN PO PAIN Last administered on 08:13; Admin Dose 5 MG; Start 04/19/16 at 03:00 Procedures Procedures tele reviewed, no events. NAYELI CURIEL Apr 20, 2016 08:51
[2016-04-20] MEDS ORDERED: RANOLAZINE (SR) 500 MG TAB PO SCH (09:00)
--- NOTE | 2016-04-20 09:03 | RADRPT ---
Stress Test Report Patient Name: FELICITY DE OLIVEIRA Gender: Male Date: 1955 Study Date: 20-Apr-2016 Binder Technician: DOT [facility] [[email or web address] Location: EKG Ref. Physician: ENRIQUE CURIEL Quality: Good Procedures: Treadmill stress echocardiogram. Indications: Chest Pain. Findings Stress Data: Protocol - John Protocol. Resting Echo Findings: Normal left ventricular size and systolic function with normal wall thickness at rest. Resting ECG: Normal EKG. Exercise Stress LV Function: Normal hyperdynamic contractile response with no inducible ischemia. Exercise ECG: No evidence of ischemic ST segment changes with stress. Reason for Termination: Fatigue. Limiting Dyspnea. Functional Capacity: Average exercise functional capacity. Blood Pressure Response: Patient with resting hypertension and hypertensive response to stress with peak SBP 227. Arrhythmia: No exercise induced arrhythmias. Conclusions 1.Stress echocardiogram negative for inducible ischemia at % MPHR. 2.Hypertensive blood pressure response to exercise. 3.No exercise induced chest pain. Electronically Signed By: Enrique Curiel 20-Apr-2016 09:02:53 -0700 Patient Name: FELICITY DE OLIVEIRA Study Date: 20-Apr-2016 [id number]
[2016-04-20] MEDS ORDERED: LISINOPRIL 5 MG TAB PO SCH (09:30)
[2016-04-20] MEDS: ASPIRIN 81 MG TAB PO SCH (09:47)
[2016-04-20] MEDS: ESCITALOPRAM 10 MG TAB PO SCH (09:47)
[2016-04-20] MEDS: oxyCODONE (CR) 20 MG TAB [oxyCONTIN] PO SCH ×2 (09:47→11:02)
[2016-04-20] MEDS: CLOPIDOGREL 75 MG TAB PO SCH (09:48)
[2016-04-20] MEDS: GLIMEPIRIDE 2 MG TAB PO SCH (09:48)
--- NOTE | 2016-04-20 16:37 | PDOCDIS ---
Discharge Instructions CONDITION Patient Condition: Good HOME CARE INSTRUCTIONS: Diet Instructions: Low Fat /Cholesterol ACTIVITY: Activity Restrictions: Slowly Increase Activity Bathing Restrictions: LINDSAY Gillespie MD Apr 20, 2016 16:36
[2016-04-20] MEDS ORDERED: LISI-313 PO (16:39)
--- NOTE | 2016-04-20 17:03 | DS ---
DATE OF ADMISSION: 04/18/2016 DATE OF DISCHARGE: 04/20/2016 HISTORY OF PRESENT ILLNESS AND HOSPITAL COURSE: This 61-year-old man was in his usual state of heal th until the past week. He saw me 2 days ago in my office and said that he was feeling fatigued. Aydee nguyen said he had an episode of chest pressure the day before I saw him. This was associated with diap horesis and feeling weak. The patient had a fever last week to 103 associated with diarrhea and vom iting, that resolved after 1 day. The patient was admitted through the emergency room. He was see n in consultation by Dr. Enrique Guerrero, his patternmaker grader. Dr. Guerrero ordered a stress echocardiog candido which was done today. The stress echocardiogram was read as showing negative for inducible isch emia. He had a hypertensive blood pressure response. His systolic blood pressure was as high as 22 7. The patient is overall feeling better since admission. He does have a history of coronary arter y disease and has had 3 cardiac stents placed previously. The patient will be discharged home today to the care of his and family. He will follow up to see me in 2 weeks and see his oncologist, Dr. Abad, in several weeks and Dr. Dennis in 1 month. The patient was ambulatory at the time of discharge. He is in good condition. He does have a history of multiple myeloma which is in fabian ssion. He does have a history of type 2 diabetes mellitus. His hemoglobin A1c in the hospital was 7.6. The patient will be discharged home today. DISCHARGE MEDICATIONS: Include the followin. Lisinopril 5 mg a day. 2. Ranexa 500 mg q.12h. 3. Aspirin 81 mg a day. 4. Plavix 75 mg a day. 5. Lexapro 20 mg a day. 6. OxyContin 20 mg twice a day. 7. Glimepiride 2 mg a day. 8. Dilaudid 5 mg q.6h. p.r.n. breakthrough pain. 9. Atorvastatin 80 mg a day. 10. Metformin 500 mg with breakfast. 11. Valium 10 mg at bedtime. 12. Tylenol p.r.n. mild pain. He will also continue his cardiac rehabilitation program. DISCHARGE DIAGNOSES: 1. Coronary artery disease. 2. Hypertension. 3. Multiple myeloma in remission. 4. Type 2 diabetes mellitus. 5. Chronic pain syndrome. Dictated By: LINDSAY YI MD, ND/NATACHA Conf#: [id number] DID#: [id number]
--- NOTE | 2016-04-20 19:16 | RADRPT ---
Vent Rate: 75 bpm RR Interval: 0 msec OK Interval: 162 msec QRS Duration: 92 msec QT Interval: 416 msec QTC Interval: 464 msec P-R-T Graham: 53 - 0 - 57 degrees Normal sinus rhythm Nonspecific T wave abnormality Abnormal ECG Electronically Signed By: Baron Cramer [id number]
== END 2016-04-20 18:00 | disposition home or self-care (01) | DRG 303 ==
LOC: E/R 17:57 → MS4 19:49
PROVIDERS: ADMIT Internal Medicine; ATTEND Internal Medicine
DX: I25.10 Atherosclerotic heart disease of native coronary artery without angina pectoris (principal); I10 Essential (primary) hypertension; C90.01 Multiple myeloma in remission; E11.9 Type 2 diabetes mellitus without complications; G89.29 Other chronic pain; Z79.82 Long term (current) use of aspirin; R51 Headache; E78.5 Hyperlipidemia, unspecified
CPT/HCPCS: 36415; 71010; 80048; 80053; 81003; 82550; 82553; 82962; 83036; 83880; 84484; 85025; 85610; 85730; 87040; 87086; 93005; 93306; 93350; 96374; J1170; J1815; J2270

== ENCOUNTER 2016-08-10 21:47 | Emergency (ER) | payer SELFPAY ==
[~2016-08-10] VITALS: Ht 182.9 cm; Wt 93.0 kg
[~2016-08-10 21:47] MED LIST changes: +DEXA4TAB PO; -ESCI10TA PO; +ESCI20TA38 PO; +LISI-313 PO; -LISI-523 PO; +OXYC20TA41 PO; -OXYC30TA PO
[2016-08-10 22:22] VITALS: Ht 182.9 cm; Wt 93.0 kg
== END 2016-08-10 23:15 | disposition left against medical advice (07) ==
LOC: E/R 21:47
DX: Z53.21 Procedure and treatment not carried out due to patient leaving prior to being seen by health care provider (principal)

== ENCOUNTER 2016-08-12 12:43 | Observation (INO) | payer MEDICARE, OTHER ==
[~2016-08-12] VITALS: Ht 182.9 cm; Wt 91.0 kg
[2016-08-12] VITALS (11 sets, daily range): BP systolic 129–159; BP diastolic 88–118; PULSE 56–82; RESP 10–18
[~2016-08-12 12:43] MED LIST changes: -HYDR4TAB18 PO; +HYDR4TAB51 PO
[2016-08-12 13:34] LABS: ADD SCAN DIFF NO
[2016-08-12 13:36] LABS: BASOPHILS % 0.2 % (0.0-2.0); EOSINOPHILS # 0.1 10^3/ul (0.0-0.5); EOSINOPHILS % 0.6 % (0.0-7.0); HEMATOCRIT 38.6 % (42.0-52.0); HEMOGLOBIN 12.9 g/dl (14.0-18.0); LYMPHOCYTES # 1.7 10^3/ul (0.8-2.9); LYMPHOCYTES % 20.4 % (15.0-51.0); MEAN CORPUSCULAR HEMOGLOBIN 30.4 pg (29.0-33.0); MEAN CORPUSCULAR HGB CONC 33.4 g/dl (32.0-37.0); MEAN CORPUSCULAR VOLUME 90.8 fl (82.0-101.0); MEAN PLATELET VOLUME 10.8 fl (7.4-10.4); MONOCYTE # 1.4 10^3/ul (0.3-0.9); MONOCYTES % 17.2 % (0.0-11.0); NEUTROPHIL # 4.9 10^3/ul (1.6-7.5); PLATELET COUNT 205 10^3/UL (140-415); RED BLOOD COUNT 4.25 10^6/ul (4.70-6.10); RED CELL DISTRIBUTION WIDTH 13.1 % (11.5-14.5); WHITE BLOOD COUNT 8.2 10^3/ul (4.8-10.8)
[2016-08-12] MEDS ORDERED: HEPARIN 1000 UNITS/ML 10 ML INJ ONE (13:39)
[2016-08-12] MEDS ORDERED: VERAPAMIL 5 MG INJ ONE (13:39)
[2016-08-12] MEDS ORDERED: IOHEXOL 350MG/ML 50 ML BTL ONE (13:39)
[2016-08-12] MEDS ORDERED: NITROGLYCERIN (IC) 100 MCG/ML INJ ONE (13:39)
[2016-08-12] MEDS ORDERED: LIDOCAINE 1% (MDV) 20 ML INJ ONE (13:39)
[2016-08-12] MEDS ORDERED: IODIXANOL LOCM 100 ML BTL ONE ×2 (13:39→15:12)
[2016-08-12] MEDS ORDERED: OXYC20TA41 PO (13:41)
[2016-08-12] MEDS ORDERED: ESCI5SOL PO (13:41)
[2016-08-12] MEDS ORDERED: AMLO2.5T78 PO (13:41)
[2016-08-12 13:54] LABS: INR 0.9; PROTIME 12.1 Sec (12.2-14.2); PT RATIO 0.9
[2016-08-12 14:13] LABS: CALCIUM 8.6 mg/dl (8.4-10.2); CREATININE 0.72 mg/dl (0.61-1.24); POTASSIUM 3.8 mmol/L (3.5-5.1)
[2016-08-12] MEDS ORDERED: FENTAnyl 50 MCG/ML VIAL ONE (14:32)
[2016-08-12] MEDS ORDERED: MIDAZOLAM 1 MG/ML 2 ML INJ ONE (14:32)
[2016-08-12] MEDS ORDERED: CLOPIDOGREL 300 MG TAB ONE (15:57)
[2016-08-12] MEDS ORDERED: SOD CHLORIDE 0.45% 500 ML IV SCH (16:01)
[2016-08-12] MEDS ORDERED: AL HYDROX/MG HYDROX/SIMETH 30 ML CUP PO PRN (16:30)
[2016-08-12] MEDS ORDERED: ACETAMINOPHEN 325 MG TAB PO PRN (16:30)
[2016-08-12] MEDS ORDERED: ONDANSETRON 4 MG INJ IV PRN (16:30)
[2016-08-12] MEDS ORDERED: OXYCODONE/ACETAMINOPHEN (5/325) TAB PO PRN (16:30)
[2016-08-12] MEDS ORDERED: GLUCOSE GEL 15 GRAM TUBE BUCCAL PRN (16:30)
[2016-08-12] MEDS ORDERED: DEXTROSE 50% 50 ML SYRINGE IV PRN ×2 (16:30)
[2016-08-12] MEDS ORDERED: ZOLPIDEM 5 MG TAB PO PRN (16:30)
[2016-08-12] MEDS ORDERED: GLUCOSE GEL 15 GRAM TUBE PO PRN ×2 (16:30)
[2016-08-12] MEDS ORDERED: GLUCAGON 1 MG INJ IM PRN (16:30)
[2016-08-12] MEDS ORDERED: HYDROmorphONE 2 MG TAB PO PRN (16:30)
[2016-08-12] MEDS: SOD CHLORIDE 0.45% 1,000 ML IV SCH ×2 (16:41→16:44)
--- NOTE | 2016-08-12 16:46 | OPR ---
Date/Time of Note Date/Time of Note DATE: 08/12/16 TIME: 16:14 Operative Report Free Text/Dictation CARDIAC CATHETERIZATION REPORT REFERRING PHYSICIAN: Joel Newton MD PROCEDURE PERFORMED 1. Left heart catheterization. 2. Percutaneous coronary intervention to the ostial ramus intermedius with drug -eluting stent x1. 3. Percutaneous coronary intervention to the mid left anterior descending artery with drug-eluting stent x1. PREOPERATIVE DIAGNOSES 1. Multivessel coronary artery disease. 2. Unstable angina. POSTOPERATIVE DIAGNOSES 1. Multivessel coronary artery disease w 2. Percutaneous coronary intervention to the ostial ramus intermedius with drug -eluting stent x1. 3. Percutaneous coronary intervention to the mid left anterior descending artery with drug-eluting stent x1. 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 Primitivo Arrieta is a pleasant 61-year-old man with a history of diabetes due to steroid use for metastatic multiple myeloma, as well as coronary artery disease with h/o ischemic cardiomyopathy and triple vessel CAD, pt was felt to be poor candidate for bypass in the past due to metastatic MM and chronic steroid therapy. Pt has undergone PCI to the LAD back in 10/2014. returned in 05/2015 with NSTEMI, was found to have stenosis of the LAD between previous placed stents. PCI was performed to LAD with LUIS. At that time, it was noted that the patient also had severe coronary artery disease of the right PDA/RPL system. The patient was treated medically, but had increasing chest pain in 11/2015 and had PCI to rPL and rPDA with LUIS x 2 total. Pt did do well , but now returned with unstable angina. Pt had no ekg changes in clinic yesterday, he reports then had recurrent chest pain/pressure today and therefore was brought to cardiovascular lab director for evaluation of coronary artery disease. The patient was explained all risks, benefits of procedure prior to arrival in the cardiovascular lab director, was understanding and in agreement to proceed with procedure. PROCEDURE DESCRIPTION: Patient was brought to lab in stable condition. Right wrist was prepped and draped in usual sterile fashion. Under ultrasound guidance, a 6-Cymraes [employer] Slender sheath was placed in the right radial artery using through and through technique. Intra-arterial nitroglycerin and verapamil were given. IV heparin was given. The patient was given aspirin prior to arrival in catheterization lab and 300 Plavix while in catheterization lab. Over a 0.035-inch J-tip wire, a 5-Cymraes TIG 4.0 diagnostic catheter was advanced to the left ventricle and pressures were measure, ventriculography was performed. The catheter was withdrawn. Cineangiograms were obtained of the left and right coronary arteries in multiple views before and after nitroglycerin IC was given. Given severe disease in ramus intermedius artery and ISR of LAD with GOPAL 2/3 flow, decision was made to proceed with PCI of both vessel given unclear culprit artery for patients unstable angina. The JL catheter was removed and exchanged for a VL 3.0 6-Cymraes guiding catheter. The patient was given additional IV heparin bolus and AC was checked and confirmed to be in therapeutic range. Cineangiograms were then obtained of the left coronary artery. A 0.014-inch Runthrough coronary guidewire was advanced to the distal ramus vessel without difficulty. An Emerge 2.0 x 12-mm balloon was advanced to the ostial ramus artery stenosis and was inflated to 10 atmospheres. The balloon was removed and exchanged for a Xience Alpine 2.5 x 23 -mm drug-eluting stent which was deployed at ostial Ramus artery to high pressures and then post dilated with stent balloon to high pressures. The stent balloon was removed and angiogram showed good stent expansion and apposition. Attention was then turned to the mid LAD stenosis between previously placed stent. The 0.014-inch 180cm runthrough coronary guidewire was advanced to the distal LAD without difficulty. mid LAD was then direct stented with 2.75 x 8mm Xience Alpine drug eluting stent to high pressure. stent balloon was exchanged for NC 3.0 x 12mm balloon and stent was post dilated including overlap area between new and old stents at high pressure. Repeat angiogram showed good stent apposition and expansion with GOPAL 3 flow. There was no evidence of dissection, perforation or distal embolization. . All catheters and wires were removed. A TR band was used to obtain hemostasis after sheath was removed. Estimated blood loss was less than 50 mL. No specimens obtained. No complications. CORONARY ANATOMY: 1. Left main: Mild disease 10% to 20%. 2. Left anterior descending artery: Mild diffuse disease in the proximal portion 20% to 30%. The mid LAD stent is widely patent. There is a section between a second stent with 70%. There does appear to be slower flow GOPAL 2/3 from mid to distal LAD. The distal LAD also has a patent stent. There is mild diffuse disease throughout the distal LAD stent. There is an early first septal artery which is very large with mild diffuse disease as well. Diagonal 1 and 2 are small caliber vessels with mild diffuse disease. Initial flow in the LAD appeared to be GOPAL 2; however, improves with IC nitroglycerin. 3. Left circumflex: A large nondominant artery. The proximal vessel is without significant disease. The mid left circumflex has mild 20% to 30% disease, gives rise to a small OM2 branch. Then, an intermediate-sized OM3 branch was without disease. There is a high Ramus/OM1 branch with a proximal 90 % stenosis, GOPAL 3 flow. 4. Right coronary artery: A very large, dominant artery. The proximal vessel has 30% stenosis in the distal subsegment. The mid RCA also has mild luminal irregularities. The distal RCA also has mild luminal irregularities. It bifurcates into a large RPD and RPL vessels. The RPL has a large patent stent in segment. The RPDA also has a large patent stent with mild diffuse disease in distal vessel HEMODYNAMICS: LVEDP is 8 mmHg. No significant gradient on LV to AO pullback. PERCUTANEOUS CORONARY INTERVENTION DESCRIPTION Lesion 1: Ramus Intermedius. Prestenosis 90%, poststenosis 0%. Pre-GOPAL flow 3. Post-GOPAL flow 3; status post percutaneous coronary intervention with Alpine 2.5 x 23-mm stent, Lesion 2: Mid LAD lesion: Prestenosis 70%, poststenosis 0%. Pre-GOPAL flow 2/ 3. Post-GOPAL flow 3; status post percutaneous coronary intervention with Alpine 2.75 x 8mm LUIS post-dilated proximally with 3.0-mm balloon. CONCLUSIONS 1. Multivessel coronary artery disease. 2. Normal left ventricular filling pressures. 3. Unstable angina. 4. Successful percutaneous coronary intervention to RI and mid LAD with total drug-eluting stent x2. 5. Patent stents in LAD, RCA vessels RECOMMENDATIONS 1. Continue aspirin 81 mg p.o. daily. 2. Continue Plavix 75 mg p.o. daily. 3. Continue statin therapy. 4. The patient unable to tolerate nitrate due to headaches. 5. The patient unable to tolerate beta sam due to bradycardia. ENRIQUE CURIEL. Aug 12, 2016 16:46
[2016-08-12] MEDS: LISINOPRIL 5 MG TAB PO SCH (16:56)
--- NOTE | 2016-08-12 16:57 | RADRPT ---
Vent Rate: 66 bpm RR Interval: 0 msec IA Interval: 158 msec QRS Duration: 90 msec QT Interval: 442 msec QTC Interval: 463 msec P-R-T [place]: 44 - 4 - 39 degrees Normal sinus rhythm Normal ECG Electronically Signed By: Enrique Dennis [id number]
[2016-08-12] MEDS: INSULIN ASPART [NOVOLOG] 3 ML PEN SC SCH ×2 (17:07→21:00)
--- NOTE | 2016-08-12 18:03 | HP ---
Date/Time of Note Date/Time of Note DATE: 08/12/16 TIME: 17:48 Assessment/Plan VTE Prophylaxis VTE Prophylaxis Intervention: contraindicated, other Lines/Catheters IV [facility]ter [facility]from [facility]): Peripheral IV Urinary Cath still in place: No Assessment/Plan Chief Complaint/Hosp Course Chest pain. Status post left heart catheterization with 2 coronary artery stents placed . Problems: Assessment/Plan Impression: 1. Coronary artery disease status post left heart cath with 2 drug-eluting stents placed today. 2. Multiple myeloma in remission 3. Type 2 diabetes mellitus 4. Chronic back pain on narcotic medications chronically 5. Hyperlipidemia 6. Rosacea 7. Depression 8. Hypertension 9. Migraine headaches. Plan: 1. Resume routine medications 2. Cardiology to continue to monitor patient and adjust medications. ICU care for tonight. 3. Check labs in a.m. HPI/ROS Admit Date/Time Admit Date/Time Aug 12, 2016 at 16:15 Hx of Present Illness Reason for admission :Chest pain History of present illness: This 61-year-old man was admitted today by Dr. Boone and underwent a left heart catheterization. The patient was found to have 90% coronary artery stenosis in his left anterior descending artery and in another branch of the left anterior descending artery. Dr. Boone placed 2 drug-eluting stents to relieve the stenosis. The patient was well until 2 days ago when he developed substernal chest pain that radiated to the left side of his chest. The patient did take 2 sublingual nitroglycerin an hour apart and the pain was relieved. The patient came to the [facility] emergency room at approximately 11:30 in the evening. After 2 hours the patient decided to leave the waiting room and return home because his pain had resolved. The patient was seen in the next day by Dr. Boone and was scheduled today for the left heart catheterization. The patient has a history of coronary artery disease. He has had 3 previous coronary artery stents placed over the last 2 years. ROS Constitutional: improved, no complaints Eyes: no complaints ENT: no complaints Respiratory: no complaints Cardiovascular: no complaints Gastrointestinal: no complaints Genitourinary: no complaints Musculoskeletal: no complaints Skin: no complaints Neurologic: no complaints PMH/Family/Social Past Medical History Medical History: coronary artery disease, diabetes, high cholesterol, hypertension Past Surgical History He has had lumbar spine surgery 3, tonsillectomy, cervical spine surgery, colonoscopy December 2012, 3 coronary artery stents placed Past Surgical Hx: no surgical history, angioplasty Family History Significant Family History: diabetes Social History Alcohol Use: none Smoking Status: Never smoker Drug Use: none Exam/Review of Systems Vital Signs Vitals Vital Signs Date Time Temp Pulse Resp B/P Pulse Ox O2 Delivery O2 Flow Rate FiO2 08/12/16 17:21 74 15 153/93 99 Nasal Cannula 08/12/16 17:00 2.0 08/12/16 16:30 98.7 Exam Constitutional: alert, oriented, well developed Psych: nl mood/affect, no complaints ENMT: nl external ears & nose, nl lips & teeth, nl nasal mucosa & septum Neck: non-tender, supple Respiratory: clear to auscultation, normal air movement Cardiovascular: nl pulses, regular rate and rhythm Gastrointestinal: nl liver, spleen, non-tender, soft Musculoskeletal: nl extremities to inspection Extremities: normal pulses Labs Result Diagram: 08/12/16 1324 08/12/16 1324 Medications Medications Current Medications Acetaminophen (Tylenol Tab) 650 mg Q4H PRN PO NON-CARDIAC PAIN LEVEL 1-3; Start 08/12/16 at 16:30 Oxycodone/ Acetaminophen (Percocet (5/ 325)) 1 tab Q4H PRN PO REPORTED NON- CARDIAC PAIN 4-7 Last administered on 08/12/16 16:56; Admin Dose 1 TAB; Start at 16:30 Al Hydrox/Mg Hydrox/Simethicone (Mag-Al Plus) 30 ml Q4H PRN PO GASTROINTESTINAL UPSET; Start 08/12/16 at 16:30 Ondansetron HCl 4 mg 4 mg Q4H PRN IV NAUSEA AND/OR VOMITING; Start 08/12/16 at 16:30 Sodium Chloride (1/2 NS) 500 ml @ 100 mls/hr Q5H IV Last administered on 16:57; Admin Dose 100 MLS/HR; Start 08/12/16 at 16:01; Stop 08/12/16 at 21:00 Amlodipine Besylate (Norvasc) 2.5 mg DAILY PO ; Start 08/13/16 at 09:00 Aspirin (Aspirin) 81 mg DAILY PO ; Start 08/13/16 at 09:00 Atorvastatin Calcium (Lipitor) 80 mg HS PO ; Start 08/12/16 at 21:00 Clopidogrel Bisulfate (plaVIX) 75 mg DAILY PO ; Start 08/13/16 at 09:00 Hydromorphone HCl (Dilaudid) 5 mg Q6H PRN PO PAIN; Start 08/12/16 at 16:30 Lisinopril (Zestril) 5 mg DAILY PO Last administered on 08/12/16t 16:56; Admin Dose 5 MG; Start 08/12/16 at 16:30 Oxycodone HCl (Oxycontin) 20 mg Q12 PO ; Start 08/12/16 at 21:00 Zolpidem Tartrate (Ambien) 10 mg QHS PRN PO INSOMNIA; Start 08/12/16 at 16:30 Escitalopram Oxalate (Lexapro) 20 mg DAILY PO ; Start 08/13/16 at 09:00 Miscellaneous Information 1 ea NOTE XX ; Start 08/12/16 at 16:30 Glucose (Glutose) 15 gm Q15M PRN PO DECREASED GLUCOSE; Start 08/12/16 at 16:30 Glucose (Glutose) 22.5 gm Q15M PRN PO DECREASED GLUCOSE; Start 08/12/16 at 16:30 Dextrose (D50w Syringe) 25 ml Q15M PRN IV DECREASED GLUCOSE; Start 08/12/16 at 16:30 Dextrose (D50w Syringe) 50 ml Q15M PRN IV DECREASED GLUCOSE; Start 08/12/16 at 16:30 Glucagon (Glucagen) 1 mg Q15M PRN IM DECREASED GLUCOSE; Start 08/12/16 at 16:30 Glucose (Glutose) 15 gm Q15M PRN BUCCAL DECREASED GLUCOSE; Start 08/12/16 at 16: 30 LINDSAY YI MD Aug 12, 2016 18:02
[2016-08-12] MEDS ORDERED: ATORVASTATIN 80 MG TAB PO SCH (21:00)
[2016-08-12] MEDS: oxyCODONE (CR) 20 MG TAB [oxyCONTIN] PO SCH (22:04)
[2016-08-13] VITALS (15 sets, daily range): BP systolic 129–163; BP diastolic 86–107; PULSE 56–78; RESP 10–21
[2016-08-13 05:11] LABS: ADD SCAN DIFF NO
[2016-08-13 05:20] LABS: BASOPHILS % 0.6 % (0.0-2.0); EOSINOPHILS # 0.1 10^3/ul (0.0-0.5); EOSINOPHILS % 0.7 % (0.0-7.0); HEMATOCRIT 40.2 % (42.0-52.0); HEMOGLOBIN 13.1 g/dl (14.0-18.0); LYMPHOCYTES # 1.6 10^3/ul (0.8-2.9); LYMPHOCYTES % 22.1 % (15.0-51.0); MEAN CORPUSCULAR HEMOGLOBIN 29.5 pg (29.0-33.0); MEAN CORPUSCULAR HGB CONC 32.6 g/dl (32.0-37.0); MEAN CORPUSCULAR VOLUME 90.5 fl (82.0-101.0); MEAN PLATELET VOLUME 10.8 fl (7.4-10.4); MONOCYTES % 14.3 % (0.0-11.0); NEUTROPHIL # 4.2 10^3/ul (1.6-7.5); PLATELET COUNT 207 10^3/UL (140-415); RED BLOOD COUNT 4.44 10^6/ul (4.70-6.10); RED CELL DISTRIBUTION WIDTH 13.2 % (11.5-14.5); WHITE BLOOD COUNT 7.2 10^3/ul (4.8-10.8)
[2016-08-13 05:48] LABS: CALCIUM 8.8 mg/dl (8.4-10.2); CREATININE 0.67 mg/dl (0.61-1.24); POTASSIUM 3.7 mmol/L (3.5-5.1)
[2016-08-13] MEDS ORDERED: GLIMEPIRIDE 2 MG TAB PO SCH (07:35)
[2016-08-13] MEDS: INSULIN ASPART [NOVOLOG] 3 ML PEN SC SCH ×2 (07:35→12:00)
[2016-08-13] MEDS: LISINOPRIL 5 MG TAB PO SCH (08:16)
[2016-08-13] MEDS: oxyCODONE (CR) 20 MG TAB [oxyCONTIN] PO SCH (08:18)
[2016-08-13] MEDS ORDERED: ESCITALOPRAM 10 MG TAB PO SCH (09:00)
[2016-08-13] MEDS ORDERED: CLOPIDOGREL 75 MG TAB PO SCH (09:00)
[2016-08-13] MEDS ORDERED: ASPIRIN 81 MG TAB PO SCH (09:00)
[2016-08-13] MEDS ORDERED: AMLODIPINE 2.5 MG TAB PO SCH (09:00)
--- NOTE | 2016-08-13 14:34 | RADRPT ---
Vent Rate: 72 bpm RR Interval: 0 msec AR Interval: 146 msec QRS Duration: 86 msec QT Interval: 428 msec QTC Interval: 468 msec P-R-T [place]: 51 - 13 - 46 degrees Normal sinus rhythm Poor R-Wave progression borderline ECG No previous tracing available for comparison Electronically Signed By: Brandon Holder [id number]
--- NOTE | 2016-08-13 15:34 | PDOCDIS ---
Discharge Instructions CONDITION Patient Condition: Good HOME CARE INSTRUCTIONS: Diet Instructions: Low Fat /CholesterolSpecial Diet: Carb. ControlledYour diet recommendation is: cardiac diet ACTIVITY: Activity Restrictions: Slowly Increase Activity Bathing Restrictions: ShowerActivity Restrictions Comment: advance as tolerated FOLLOW UP/APPOINTMENTS Follow-up Plan follow up with rn imcu Dr. Boone and Dr. Hathaway within 1-2 weeks OTHER ORDERS: Other Orders: Take all your medication as prescribed SCHOOL/WORK RELEASE May return to School/Work with: No Restrictions LAN MORRIS MD Aug 13, 2016 15:34
--- NOTE | 2016-08-13 15:39 | DS ---
Date/Time of Note Date/Time of Note DATE: 08/13/16 TIME: 15:36 Discharge Summary Admission/Discharge Info Admit Date/Time Aug 12, 2016 at 16:15 Discharge Date/Time Discharge Diagnosis 1. Coronary artery disease status post left heart cath with 2 drug-eluting stents placed today. 2. Multiple myeloma in remission 3. Type 2 diabetes mellitus 4. Chronic back pain on narcotic medications chronically 5. Hyperlipidemia 6. Rosacea 7. Depression 8. Hypertension 9. Migraine headaches. Consults Dr. Dennis of cardiology Procedures 08/12/[address] Dennis, with 2 stents placed. total of 6 overall during life time Hx of Present Illness Reason for admission :Chest pain History of present illness: This 61-year-old man was admitted today by Dr. Boone and underwent a left heart catheterization. The patient was found to have 90% coronary artery stenosis in his left anterior descending artery and in another branch of the left anterior descending artery. Dr. Boone placed 2 drug-eluting stents to relieve the stenosis. The patient was well until 2 days ago when he developed substernal chest pain that radiated to the left side of his chest. The patient did take 2 sublingual nitroglycerin an hour apart and the pain was relieved. The patient came to the [facility] emergency room at approximately 11:30 in the evening. After 2 hours the patient decided to leave the waiting room and return home because his pain had resolved. The patient was seen in the next day by Dr. Boone and was scheduled today for the left heart catheterization. The patient has a history of coronary artery disease. He has had 3 previous coronary artery stents placed over the last 2 years. Hospital Course Chest pain. Status post left heart catheterization with 2 coronary artery stents placed . Home Meds Active Scripts Lisinopril* (Lisinopril*) 5 Mg Tablet, 5 MG PO DAILY for 30 Days, #30 TAB 2 Refills Prov:JOEL YI MD 04/20/16 Clopidogrel Bisulfate (Clopidogrel) 75 Mg Tab, 75 MG PO DAILY, #90 4 Refills Prov:YURIY HERRING MD 10/25/14 Aspirin (Aspirin) 81 Mg Chew, 81 MG PO DAILY, #30 12 Refills Prov:YURIY HERRING MD 10/25/14 Reported Medications Oxycodone Hcl* (Oxycontin*) 20 Mg Tab.er.12h, 20 MG PO Q12, TAB 08/12/16 Escitalopram Oxalate (Lexapro) 5 Mg/5 Ml Solution, 20 MG PO DAILY, ML 08/12/16 Amlodipine Besylate* (Amlodipine Besylate*) 2.5 Mg Tablet, 2.5 MG PO DAILY, #30 TAB 08/12/16 Hydromorphone Hcl* (Dilaudid*) 4 Mg Tablet, 5 MG PO Q6H Y for PAIN, TAB 11/26/15 Zolpidem Tartrate* (Ambien*) 10 Mg Tablet, 10 MG PO QHS Y for INSOMNIA, TAB 11/26/15 Diazepam* (Diazepam*) 10 Mg Tablet, 10 MG PO, TAB 11/26/15 Glimepiride* (Glimepiride*) 2 Mg Tablet, 2 MG PO WITH BREAKFAST, TAB 11/26/15 Metformin* (Glucophage*) 500 Mg Tab, 500 MG PO BID, #30 TAB 07/01/15 Atorvastatin* (Atorvastatin*) 80 Mg Tablet, 80 MG PO HS, TAB 10/21/14 Discontinued Reported Medications Dexamethasone* (Dexamethasone*) 4 Mg Tablet, 6 MG PO DAILY, TAB 04/18/16 Escitalopram Oxalate* (Escitalopram Oxalate*) 20 Mg Tablet, 20 MG PO DAILY, #30 TAB 04/18/16 Oxycodone Hcl* (Oxycontin*) 20 Mg Tab.er.12h, 20 MG PO Q4H, TAB 04/18/16 Follow-up Plan Follow up with cardiology and primary doctor Primary Care Provider Joel Yi MD Pending Labs Laboratory Tests Test 08/12/16 16:48 08/12/16 16:54 08/12/16 21:13 08/13/16 04:35 Bedside Glucose 117mg/dL (70-220) 177mg/dL (70-220) Troponin I < 0.012ng/ml (0.00-0.12) White Blood Count 7.210^3/ul (4.8-10.8) Red Blood Count 4.4410^6/ul (4.70-6.10) Hemoglobin 13.1g/dl (14.0-18.0) Hematocrit 40.2% (42.0-52.0) Mean Corpuscular Volume 90.5fl (82.0-101.0) Mean Corpuscular Hemoglobin 29.5pg (29.0-33.0) Mean Corpuscular Hemoglobin Concent 32.6g/dl (32.0-37.0) Red Cell Distribution Width 13.2% (11.5-14.5) Platelet Count 37934^3/UL (140-415) Mean Platelet Volume 10.8fl (7.4-10.4) Neutrophils % 59.0% (39.0-77.0) Lymphocytes % 22.1% (15.0-51.0) Monocytes % 14.3% (0.0-11.0) Eosinophils % 0.7% (0.0-7.0) Basophils % 0.6% (0.0-2.0) Nucleated Red Blood Cells % 0.0/100WBC (0.0-0.0) Neutrophils # 4.210^3/ul (1.6-7.5) Lymphocytes # 1.610^3/ul (0.8-2.9) Monocytes # 1.010^3/ul (0.3-0.9) Eosinophils # 0.110^3/ul (0.0-0.5) Basophils # 0.010^3/ul (0.0-0.1) Nucleated Red Blood Cells # 0.010^3/ul (0.0-0.0) Sodium Level 139mmol/L (135-144) Potassium Level 3.7mmol/L (3.5-5.1) Chloride Level 106mmol/L (97-110) Carbon Dioxide Level 26mmol/L (21-31) Anion Gap 11 (8-16) Blood Urea Nitrogen 13mg/dl (7-20) Creatinine 0.67mg/dl (0.61-1.24) Glucose Level 129mg/dl (70-220) Calcium Level 8.8mg/dl (8.4-10.2) Test 08/13/16 08:01 08/13/16 11:57 Bedside Glucose 113mg/dL (70-220) 157mg/dL (70-220) LAN MORRIS MD Aug 13, 2016 15:39
== END 2016-08-13 16:20 | disposition home or self-care (01) ==
LOC: SDS 12:43 → ICU 16:15
PROVIDERS: ADMIT Internal Medicine Interventional Cardiology; ATTEND Internal Medicine Interventional Cardiology
DX: I25.110 Atherosclerotic heart disease of native coronary artery with unstable angina pectoris (principal); E11.9 Type 2 diabetes mellitus without complications; C90.01 Multiple myeloma in remission; G89.29 Other chronic pain; M54.5 Low back pain; E78.5 Hyperlipidemia, unspecified; L71.9 Rosacea, unspecified; F32.9 Major depressive disorder, single episode, unspecified; I10 Essential (primary) hypertension; G43.909 Migraine, unspecified, not intractable, without status migrainosus
CPT/HCPCS: 80048; 82962; 84484; 85025; 85610; 87081; 93005; 93458; C1725; C1769; C1876; C1887; C9600; C9601; G0378; J1644; J1815; J2250; J3010; Q9967

== ENCOUNTER → 2016-10-26 | Outpatient (CLI) | payer MEDICARE, OTHER ==
[~2016-10-26] MED LIST changes: +AMLO2.5T78 PO; -DEXA4TAB PO; -ESCI20TA38 PO; +ESCI5SOL PO
--- NOTE | 2016-10-26 16:31 | RADRPT ---
PROCEDURE: CT Brain without contrast. CLINICAL INDICATION: Trauma due to a fall. Unsteady gait. TECHNIQUE: A CT of the brain without contrast was performed utilizing axial sections from the skul l base through the vertex. The patient was scanned without intravenous contrast enhancement. [place] l and coronal reformatted images were obtained using the data from the axial images. Total exam DLP is 720.23 mGy-cm. CTDIvol is 43.77 mGy. One or more of the following dose reduction techniques were used: Automated exposure control, adjustment of the mA and/or kV according to patient size, use of iterative reconstruction technique. COMPARISON: None available. FINDINGS: There is normal hicks-white matter differentiation. There is enlargement of the ventricles and subarachnoid spaces consistent with atrophy. There is an old lacunar infarct in the left basal ganglia inferiorly measuring 1.2 x 0.5 cm. There is no evidenc e of recent infarct. There is decreased attenuation of the periventricular white matter consistent with microangiopathic ischemic change. There is no intracranial hemorrhage or space-occupying lesion. There are vascular calcifications consistent with atherosclerosis. There is no skull fracture or lytic lesion. There is a right posterior superior parietal scalp hemat roz. IMPRESSION: 1. Atrophy. 2. Microangiopathic ischemic change. 3. Atherosclerosis. 4. Right posterior superior parietal scalp hematoma. 5. No intracranial hemorrhage. 6. Old lacunar infarct in the left basal ganglia inferiorly. 7. Otherwise unremarkable noncontrast CT scan of the brain. RPTAT: QQ .Yogi Tavares MD, Date Time Electronically viewed and signed by .Yogi Tavares MD, MD on 10/26/2016 16:31 .R/
== END | disposition home or self-care (01) ==
LOC: C/S 15:37
PROVIDERS: ATTEND Internal Medicine
DX: R51 Headache (principal); S06.9X9A Unspecified intracranial injury with loss of consciousness of unspecified duration, initial encounter; X58.XXXA Exposure to other specified factors, initial encounter
CPT/HCPCS: 70450

== ENCOUNTER 2018-10-01 14:09 | Inpatient (IN) | payer MEDICARE, OTHER ==
[~2018-10-01] VITALS: Ht 182.9 cm; Wt 91.2 kg
[~2018-10-01 14:09] MED LIST changes: +ASPI-831 PO; -ASPI81TA3 PO; +ATOR-2 PO; -ATOR80TA75 PO; +FENT1PAT7 TD; +METF-849 PO; -METF500T4 PO
[2018-10-01] MEDS ORDERED: ACETAMINOPHEN 325 MG TAB PO PRN (18:30)
[2018-10-01] MEDS ORDERED: MAGNESIUM HYDROXIDE 30ML CUP PO PRN (18:30)
[2018-10-01] MEDS ORDERED: ONDANSETRON 4 MG INJ IV PRN (18:30)
[2018-10-01] MEDS ORDERED: DOCUSATE SODIUM 100 MG CAP PO PRN (18:30)
[2018-10-01] MEDS ORDERED: ZOLPIDEM 5 MG TAB PO PRN (18:30)
[2018-10-01] MEDS ORDERED: NACL 0.9% 3 ML SYG IV SCH (18:30)
[2018-10-01 19:03] VITALS: BP 128/74; PULSE 97; RESP 18
[2018-10-01 20:27] VITALS: BP 131/84; PULSE 88; RESP 18
[2018-10-01] MEDS: HYDROCODONE/APAP (5/325) TAB PO PRN (20:46)
[2018-10-01] MEDS ORDERED: VANCOMYCIN IV PER PHARMACY XX SCH (21:00)
[2018-10-01] MEDS ORDERED: DEXTROSE 50% 50 ML SYRINGE IV PRN ×2 (21:00)
[2018-10-01] MEDS ORDERED: GLUCOSE GEL 15 GRAM TUBE BUCCAL PRN (21:00)
[2018-10-01] MEDS ORDERED: GLUCAGON 1 MG INJ IM PRN (21:00)
[2018-10-01] MEDS ORDERED: GLUCOSE GEL 15 GRAM TUBE PO PRN ×2 (21:00)
[2018-10-01] MEDS ORDERED: CEFTRIAXONE 1 GM/50 ML (PMX) 50 ML IVPB SCH (21:00)
[2018-10-01] MEDS: GABAPENTIN 300 MG CAP PO SCH (21:38)
[2018-10-01] MEDS: ATORVASTATIN 80 MG TAB PO SCH (21:38)
[2018-10-01] MEDS: TAMSULOSIN (SR) 0.4 MG CAP PO SCH (21:40)
[2018-10-01] MEDS ORDERED: VANCOMYCIN HCL 2 GM in SOD CHLORIDE 0.9% 500 ML IVPB SCH (22:00)
[2018-10-01] MEDS: INSULIN ASPART [NOVOLOG] 3 ML PEN SC SCH (23:05)
[2018-10-01 23:30] VITALS: Ht 182.9 cm; Wt 91.2 kg
[2018-10-02 01:25] VITALS: BP 117/69; PULSE 96; RESP 17
[2018-10-02 08:11] VITALS: BP 157/88; PULSE 64; RESP 18
[2018-10-02] MEDS: metFORMIN 500 MG TAB PO SCH ×4 (08:30→18:00)
[2018-10-02] MEDS: ESCITALOPRAM 10 MG TAB PO SCH (08:47)
[2018-10-02] MEDS: LINAGLIPTIN 5 MG TABLET PO SCH (08:48)
[2018-10-02] MEDS: INSULIN ASPART [NOVOLOG] 3 ML PEN SC SCH ×4 (08:53→21:00)
[2018-10-02] MEDS: HYDROCODONE/APAP (5/325) TAB PO PRN ×4 (09:01→20:01)
[2018-10-02] MEDS: VANCOMYCIN 1.5 GM/NS 250 ML 250 ML IVPB SCH (11:06)
[2018-10-02 14:22] VITALS: BP 134/81; PULSE 81; RESP 18
[2018-10-02 19:28] VITALS: BP 170/92; PULSE 74; RESP 16
[2018-10-02] MEDS ORDERED: SUMATRIPTAN 50 MG TAB PO ONE (21:30)
[2018-10-02] MEDS: GABAPENTIN 300 MG CAP PO SCH (22:41)
[2018-10-02] MEDS: TAMSULOSIN (SR) 0.4 MG CAP PO SCH (22:41)
[2018-10-02] MEDS: ATORVASTATIN 80 MG TAB PO SCH (22:41)
[2018-10-03] MEDS: HYDROCODONE/APAP (5/325) TAB PO PRN ×3 (00:25→14:04)
[2018-10-03] MEDS: VANCOMYCIN 1.5 GM/NS 250 ML 250 ML IVPB SCH ×2 (00:26→12:41)
[2018-10-03 01:47] VITALS: PULSE 68; RESP 18
[2018-10-03] MEDS ORDERED: AMLODIPINE 2.5 MG TAB PO ONE (03:00)
[2018-10-03 08:03] VITALS: BP 161/94; PULSE 62; RESP 18
[2018-10-03] MEDS: ESCITALOPRAM 10 MG TAB PO SCH (08:37)
[2018-10-03] MEDS: LINAGLIPTIN 5 MG TABLET PO SCH (08:38)
[2018-10-03] MEDS: metFORMIN 500 MG TAB PO SCH (08:38)
[2018-10-03] MEDS: INSULIN ASPART [NOVOLOG] 3 ML PEN SC SCH ×2 (08:44→12:00)
[2018-10-03] MEDS ORDERED: AMLODIPINE 2.5 MG TAB PO SCH (13:30)
[2018-10-03] MEDS ORDERED: ZOLPIDEM 5 MG TAB PO PRN (13:30)
[2018-10-03] MEDS ORDERED: DOXYCYCLINE 100 MG TAB PO SCH (15:00)
[2018-10-03] MEDS ORDERED: AMOXICILLIN/CLAV 875 MG TAB PO SCH (15:00)
[2018-10-03] MEDS ORDERED: metFORMIN 500 MG TAB PO SCH (18:00)
[2018-10-03] MEDS ORDERED: oxyCODONE (CR) 10 MG TAB [oxyCONTIN] PO SCH (21:00)
[2018-10-03] MEDS ORDERED: ATORVASTATIN 80 MG TAB PO SCH (21:00)
[2018-10-04] MEDS ORDERED: LISINOPRIL 5 MG TAB PO SCH (09:00)
[2018-10-04] MEDS ORDERED: ESCITALOPRAM OXALATE 20 MG PO SCH (09:00)
[2018-10-04] MEDS ORDERED: CLOPIDOGREL 75 MG TAB PO SCH (09:00)
[2018-10-04] MEDS ORDERED: ASPIRIN 81 MG TAB PO SCH (09:00)
== END 2018-10-03 17:30 | disposition home or self-care (01) | DRG 603 ==
LOC: E/R 14:09 → 2NE 17:15 → OBSVTOIN 10-02 08:21
PROVIDERS: ADMIT Internal Medicine; ATTEND Internal Medicine
DX: L03.116 Cellulitis of left lower limb (principal); F11.20 Opioid dependence, uncomplicated; C90.01 Multiple myeloma in remission; L03.115 Cellulitis of right lower limb; E11.9 Type 2 diabetes mellitus without complications; I25.9 Chronic ischemic heart disease, unspecified; G43.909 Migraine, unspecified, not intractable, without status migrainosus; I25.10 Atherosclerotic heart disease of native coronary artery without angina pectoris; Z95.5 Presence of coronary angioplasty implant and graft; G89.4 Chronic pain syndrome
CPT/HCPCS: 71045; 80053; 80202; 81003; 82962; 83036; 83735; 84100; 84145; 84560; 85025; 85610; 85730; 87070; 87086; 93005; 99217; G0378; J0696; J1815; J3370; J7040